=== PATIENT | male | born 1940 | race Caucasian/White ===

== ENCOUNTER 2018-10-27 10:54 | Day surgery (SDC) | payer OTHER ==
--- OUTSIDE RECORDS SUMMARY | 2018-10-27 10:58 | XMS REPORT | Summary of Care ---
:[address] [facility] Urology [facility] Address [address] [address] Care Team Providers Name Role Phone Quentin Gutierrez Primary Care Physician Encounter HQ Noahivet(FIN) [id number] Date(s): 02/10/18 - 02/11/18 [facility] [address] [phone] Vital Signs No data available for this section Problem List Condition Effective Dates Status Health Status Informant Ongoing use of possibly toxic Active medication(Confirmed) Bowel obstruction(Confirmed) Resolved Chronic pain syndrome(Confirmed)1 11/02/11 Active Colitis, ulcerative(Confirmed) Resolved Diarrhea(Confirmed) Active Glaucoma2 11/02/11 Active Hyperlipidemia(Confirmed)3 11/02/11 Active Hypertensive disorder4 11/02/11 Active Nephrolithiasis(Confirmed) Active Ankylosing spondylitis(Confirmed) Active Nocturia(Confirmed) Active Obesity(Confirmed) Active Osteomyelitis(Confirmed)5 Resolved Preoperative procedures6, 7 11/07/12 Resolved Elevated PSA(Confirmed) Active 1Data migrated from [employer] on 08/28/14.2Data migrated from [employer] on 08/28/14.3Data migrated from [employer] on 08/28/14.4Data migrated from [employer] on 08/28/14. Lt 4th [id number] migrated from [employer] on .7Data migrated from [employer] on 10/15/14. Allergies, Adverse Reactions, Alerts Substance Reaction Severity Status sulfa drugs1 Critical Active aspirin2 Critical Active 1Data migrated from [employer] on 10/28/14. Originally documented as SULFA.2Data migrated from [employer] on 07/30/14. Originally documented as ASA. Medications No data available for this section Results No data available for this section Immunizations Given and Recorded Vaccine Date Status Refusal Reason influenza virus vaccine, inactivated 12/30/17 Recorded influenza virus vaccine, inactivated 03/01/17 Recorded zoster vaccine, inactivated1 06/22/17 Recorded Hx influenza vaccine-unspecified2 03/11/12 Given 1Result Comment: [09/30/2017] First out of two [id number] Comment: fluzone. Migrated from [facility] ; Data migrated from [employer] on 05/03/2015. Procedures Procedure Date Related Diagnosis Body Site Status Lithotripsy using laser 01/08/18 Completed Prostate biopsy sample 12/16/17 Completed Partial amputation of lesser toe 11/03/12 Completed Colectomy Completed Hernia repair Completed Social History Social History Type Response Alcohol Never Smoking Status Never smoker; Type: Pt dips; Exposure to Tobacco Smoke None; Cigarette Smoking Last 365 Days No; Reg Smoking Cessation Counseling No1 entered on: 08/12/18 1Pt dips - 1 can will last 5-6 days - starting dipping about age 47 yrs. Assessment and Plan No data available for this section
--- OUTSIDE RECORDS SUMMARY | 2018-10-27 10:58 | XMS REPORT | Summary of Care ---
:1940 Author Organization [facility] Internal Medicine [place] Address [address] [place] [address]- Encounter HQ Eda_diaz(FIN) [phone] Date(s): 02/25/17 - 02/25/17 [facility] Internal Medicine [place] [id number] [place] [address] [phone] Discharge Disposition: Home or Self Care Attending Physician: Kraig Smith MD Vital Signs Most recent to oldest [Reference Range]: 1 Height 180.34 cm (02/25/17 2:08 PM) Temperature Oral [96.4-99.1 DegF] 97.6 DegF (02/25/17 2:08 PM) Blood Pressure [90-140/60-90 mmHg] 134/68 mmHg (02/25/17 2:08 PM) Peripheral Pulse Rate [60-100 bpm] 80 bpm (02/25/17 2:08 PM) Problem List Condition Effective Dates Status Health Status Informant Ongoing use of possibly toxic Active medication(Confirmed) Bowel obstruction(Confirmed) Resolved Chronic pain syndrome(Confirmed)1 11/02/11 Active Colitis, ulcerative(Confirmed) Resolved Glaucoma2 11/02/11 Active Hyperlipidemia(Confirmed)3 11/02/11 Active Hypertensive disorder4 11/02/11 Active Ankylosing spondylitis(Confirmed) Active Nocturia(Confirmed) Active Obesity(Confirmed) Active Osteomyelitis(Confirmed)5 Resolved Preoperative procedures6, 7 11/07/12 Resolved 1Data migrated from [employer] on 08/28/14.2Data migrated from [employer] on 08/28/14.3Data migrated from [employer] on 08/28/14.4Data migrated from [employer] on 08/28/14. Lt 4th [id number] migrated from [employer] on .7Data migrated from [employer] on 10/15/14. Allergies, Adverse Reactions, Alerts Substance Reaction Severity Status sulfa drugs1 Critical Active aspirin2 Critical Active 1Data migrated from [employer] on 10/28/14. Originally documented as SULFA.2Data migrated from [employer] on 07/30/14. Originally documented as ASA. Medications Claritin 10 mg oral tablet 10 mg=1 tab, PO, Daily Start Date: 02/25/17 Status: OrderedCurcumin Curcumin, 1 tab, PO, Daily, Refill(s) 0 Start Date: 02/25/17 Status: OrderedGlucosamine & Chondroitin with MSM 2 tab, PO, Daily, 0 Refill(s) Start Date: 02/25/17 Status: Orderedtramadol 50 mg oral tablet 50 mg=1 tab, PO, Q4H, # 150 tab, 3 Refill(s) Start Date: 02/25/17 Status: Ordered Results No data available for this section Immunizations Given and Recorded Vaccine Date Status Refusal Reason Hx influenza vaccine-unspecified1 03/11/12 Given 1Result Comment: fluzone. Migrated from [facility] ; Data migrated from [employer] on 05/03/2015. Procedures Procedure Date Related Diagnosis Body Site Partial amputation of lesser toe 11/03/12 Colectomy Hernia repair Social History Social History Type Response Alcohol Never Smoking Status Never smoker; Type: Pt dips; Exposure to Tobacco Smoke None; Cigarette Smoking Last 365 Days No; Reg Smoking Cessation Counseling No1 1Pt dips - 1 can will last 5-6 days - starting dipping about age 47 yrs. Assessment and Plan No data available for this section
--- OUTSIDE RECORDS SUMMARY | 2018-10-27 10:58 | XMS REPORT | Summary of Care ---
:1940 Author Organization [facility] Radiology [place] Address [address] [place] [address]- Care Team Providers Name Role Phone Quentin Gutierrez Primary Care Physician Encounter HQ Chandrikaestherfrancisco_diaz(FIN) [id number] Date(s): 02/11/18 - 02/11/18 [facility] Radiology [address] [place] [phone] Attending Physician: VISIT, NURSE ST XRAY Vital Signs No data available for this [...] from [employer] on 08/28/14. Lt 4th [id number] migrated from [employer] on .7Data migrated from [employer] on 10/15/14. Allergies, Adverse Reactions, Alerts Substance Reaction Severity Status sulfa drugs1 Critical Active aspirin2 Critical Active 1Data migrated from [employer] on 10/28/14. Originally documented as SULFA.2Data migrated from [employer] on 07/30/14. Originally documented as ASA. Medications No data available for this section Results No data available for this section Immunizations Given and Recorded Vaccine Date Status Refusal Reason influenza virus vaccine, inactivated 12/30/17 Recorded influenza virus vaccine, inactivated 03/01/17 Recorded zoster vaccine, inactivated1 06/22/17 Recorded Hx influenza vaccine-unspecified2 03/11/12 Given 1Result Comment: [09/30/2017] First out of two [id number] Comment: fluzone. Migrated from [facility] ; Data migrated from [employer] on 05/03/2015. Procedures Procedure Date Related Diagnosis [...]
--- OUTSIDE RECORDS SUMMARY | 2018-10-27 10:58 | XMS REPORT | Summary of Care ---
:1940 Author Organization [facility] Urology [place] Address [address] [place] [address]- Encounter HQ Evgeny(FIN) [phone] Date(s): 12/10/17 - 12/10/17 [facility] [address] [place] [address]- Discharge Disposition: Home or Self Care Attending Physician: Kraig Smith MD Vital Signs Most recent to oldest [Reference Range]: 1 Height 172.72 cm (12/10/17 4:30 PM) Weight 114 kg (12/10/17 4:30 PM) Body Mass Index 38.21 m2 (12/10/17 4:30 PM) Problem List Condition Effective Dates Status [...] from [employer] on 08/28/14. Lt 4th [id number] migrated from [employer] on .7Data migrated from [employer] on 10/15/14. Allergies, Adverse Reactions, Alerts Substance Reaction Severity Status sulfa drugs1 Critical Active aspirin2 Critical Active 1Data migrated from [employer] on 10/28/14. Originally documented as SULFA.2Data migrated from [employer] on 07/30/14. Originally documented as ASA. Medications triamcinolone topical 0.025% cream 1 appl, TOP, TID, PRN For rash, X 14 day, # 15 gm, 0 Refill(s), Pharmacy: [facility] Start Date: 12/16/17 Stop Date: 12/30/17 Status: Completed Results No data available for this section Immunizations Given and Recorded Vaccine Date Status Refusal Reason influenza virus vaccine, inactivated 12/30/17 Recorded influenza virus vaccine, inactivated 03/01/17 Recorded zoster vaccine, inactivated1 06/22/17 Recorded Hx influenza vaccine-unspecified2 03/11/12 Given 1Result Comment: [09/30/2017] First out of two [id number] Comment: fluzone. Migrated from [facility] ; Data migrated from [employer] on 05/03/2015. Procedures Procedure Date Related Diagnosis [...] Reg Smoking Cessation Counseling No1 entered on: 03/04/18 1Pt dips - 1 can will last 5-6 days - starting dipping about age 47 yrs. Assessment and Plan No data available for this section
--- OUTSIDE RECORDS SUMMARY | 2018-10-27 10:58 | XMS REPORT | Summary of Care ---
:1940 Author Organization [facility] Radiology [place] Address [address] [place] [address]- Care Team Providers Name Role Phone Quentin Gutierrez Primary Care Physician Encounter HQ Noahivet(CHRISTOS) [phone] Date(s): 02/11/18 - 02/11/18 [facility] Radiology [address] [place] [phone] Discharge Disposition: Home or Self Care Attending Physician: VISIT, NURSE [facility] XRAY Vital Signs No data available for [...] from [employer] on 08/28/14. Lt 4th [id number] migrated from [employer] on .7Data migrated from [employer] on 10/15/14. Allergies, Adverse Reactions, Alerts Substance Reaction Severity Status sulfa drugs1 Critical Active aspirin2 Critical Active 1Data migrated from [employer] on 10/28/14. Originally documented as SULFA.2Data migrated from [employer] on 07/30/14. Originally documented as ASA. Medications No data available for this section Results No data available for this section Immunizations Given and Recorded Vaccine Date Status Refusal Reason influenza virus vaccine, inactivated 12/30/17 Recorded influenza virus vaccine, inactivated 03/01/17 Recorded zoster vaccine, inactivated1 06/22/17 Recorded Hx influenza vaccine-unspecified2 03/11/12 Given 1Result Comment: [09/30/2017] First out of two [id number] Comment: fluzone. Migrated from [facility] ; Data migrated from [employer] on 05/03/2015. Procedures Procedure Date Related Diagnosis [...]
--- OUTSIDE RECORDS SUMMARY | 2018-10-27 10:58 | XMS REPORT | Continuity of Care Document ---
:1940 Author Organization [employer] Care Team Providers Name Role Phone [employer] Unavailable Unavailable Problems Problem Status Onset Classification Date Comments Source Date Reported Elevated prostate 03/01/20 07/05/2018 [facility]ID specific antigen 18 [place] [PSA] [place] R97.20 - ELEVATED Active 11/15/19 [facility] PROSTATE SPECIFIC 18 [place] ANT [place] Preoperative Resolved 11/08/19 Problem 09/22/2018 Data migrated from [facility] on 10/16/14. procedures6, 7 13 Data migrated from [facility] on 10/15/14. Medical Group, OPID [place], [place] Chronic pain Active 11/02/19 Problem 09/22/2018 Data syndrome1 12 migrated Medical from [facility] OPID on 08/28/14. [place], [place] Glaucoma2 Active 11/02/19 Problem 09/22/2018 Data 12 migrated Medical from [facility] OPID on 08/28/14. [place], [place] Hyperlipidemia3 Active 11/02/19 Problem 09/22/2018 Data 12 migrated Medical from [facility] OPID on 08/28/14. [place], [place] Hypertensive Active 11/02/19 Problem 09/22/2018 Data disorder4 12 migrated Medical from [facility] OPID on 08/28/14. 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 Medical Group, OPID [place], [place] Nocturia Active Problem 09/22/2018 Medical Group, OPID [place], [place] Obesity Active Problem 09/22/2018 Medical Group, OPID [place], [place] Osteomyelitis5 Resolved Problem 09/22/201810/2012 Lt 4th toe Medical Group, OPID [place], [place] Elevated PSA Active Problem 09/22/2018 Medical Group, OPID [place], Eugene Essential 07/05/2018 [place] hypertension [place] Ulcerative 07/05/2018 [place] colitis, [place] unspecified, without complications 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 Chronic pain 07/05/2018 [place] syndrome [place] Cyst of kidney, 07/05/2018 OPID acquired Eugene,[facility] Eugene Calculus of kidney 07/05/2018 [place] Hyperlipidemia, 07/05/2018 [place] unspecified [place] Nocturia 07/05/2018 [place] Obesity, 07/05/2018 [place] unspecified [place] Acquired absence 07/05/2018 [place] of other specified [place] parts of digestive tract 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 [place] Calculus of ureter 06/17/2018 OPID [place] Medications Medication Details Route Status Patient Ordering Order Source Instructions Provider Date tramadol 50 mg=1 tab, Active 07/08/ hydrochloride 50 MG PO, Q6H, X 7 2019 Medical Oral Tablet day, # 28 Group tab, 0 Refill(s) Atropine Sulfate See Active 0.025 MG / Instructions, 2019 Medical Diphenoxylate 1 or 2 tabs Group Hydrochloride 2.5 MG by mouth up Oral Tablet [Lomotil] to 3 times daily as needed for diarrhea, # 60 tab, 2 Refill(s) Hydrochlorothiazide 1 tab, PO, Active 06/16/ 25 MG / Losartan Daily, # 90 2019 Medical Potassium 100 MG Oral tab, 3 Group Tablet Refill(s), Pharmacy: [facility] tramadol 50 mg=1 tab, No Longer 03/04/ hydrochloride 50 MG PO, Q4H, # Active 2018 Medical Oral Tablet 150 tab, 3 Group Refill(s) tramadol 50 mg=1 tab, No Longer 03/04/ hydrochloride 50 MG PO, Q4H, # Active 2018 Medical Oral Tablet 150 tab, 3 Group Refill(s) Triamcinolone 1 appl, TOP, No Longer Acetonide 0.25 MG/ML TID, PRN For Active 2018 Medical Topical Cream rash, X 14 Group day, # 15 gm, 0 Refill(s), Pharmacy: [facility] Fentanyl Route: IV, Inactive [place] Drug form: 2018 [place] INJ, ONCE, Dosing Weight 113.636, kg, Start date: 12/16/17 11:00:00 CDT, Stop date: 12/16/17 11:00:00 CDTNotes: (Same as: Sublimaze) Preservative free. Versed 3 mg, 3 mL, Inactive [place] Route: IV, 2017 [place] Drug form: INJ, ONCE, Dosing Weight 113.636, kg, Start date: 12/16/17 11:00:00 CDT, Stop date: 12/16/17 11:00:00 CDTNotes: (Same as: Versed) MEDICATION WASTE Product Size: 2 mg Product Wasted: _1__ mg tramadol 50 mg=1 tab, No Longer hydrochloride 50 MG PO, Q4H, # Active 2018 Medical Oral Tablet 150 tab, 3 Group Refill(s) tramadol 50 mg=1 tab, Active hydrochloride 50 MG PO, Q4H, # 2018 Medical Oral Tablet 150 tab, 3 Group Refill(s) Hydrochlorothiazide 1 tab, PO, Active 25 MG / Losartan Daily, # 90 2018 Medical Potassium 100 MG Oral tab, 3 Group Tablet Refill(s), Pharmacy: [facility] tramadol 50 mg=1 tab, Active hydrochloride 50 MG PO, Q4H, # 2017 Medical Oral Tablet 150 tab, 3 Group Refill(s) Curcumin Curcumin, 1 Active tab, PO, 2017 Medical Daily, Group Refill(s) 0 Loratadine 10 MG Oral 10 mg=1 tab, Active Tablet [Claritin] PO, Daily 2017 Medical Group Glucosamine & 2 tab, PO, Active Chondroitin with MSM Daily, 0 2017 Medical Refill(s) Group Allergies, Adverse Reactions, Alerts Substance Category Reaction Severity Reaction Status Date Comments Source type Reported sulfa Assertion Critical Drug Active Data drugs<sup>1 allergy 2 migrated Medical </sup> from [facility] on 10/28/14. Originally documented as SULFA. aspirin<sup Assertion Critical Drug Active Data MH >2</sup> allergy 2 migrated Medical from [facility] on 07/30/14. Originally documented as ASA. Immunizations Immunization Date Site Status Last Comments Source Given Updated influenza virus completed Titel Medical vaccine, 8 Group, inactivated OPID Eugene, Eugene zoster vaccine, completed Titel Result Medical inactivated<sup> 8 Comment: Group, 1</sup> [09/30/2017] OPID [place] First out of [place], two shots Eugene influenza virus completed Titel Medical vaccine, 7 Group, inactivated OPID [place], Eugene Hx influenza Left completed GE Result Medical vaccine-unspecif 2 Deltoid Comment: Group, ied<sup>2</sup> fluzone. OPID [place] Migrated from [place],MH OBS ; Data Eugene migrated from [facility] on 05/03/2015. Hx influenza Left completed GE Result Medical vaccine-unspecif 2 Deltoid Comment: Group ied<sup>1</sup> fluzone. Migrated from OBS ; Data migrated from [facility] on 05/03/2015. Results Order Name Results Value Reference Date Interpretation Comments Source Range HEMATOLOGY Platelet 310 133 - 450 12/16/ 2017 [place] CHEM PANEL eGFR 55 12/16/ Result 2017 Comment: The [facility] eGFR is [place] calculated using the CKD-EPI formula. In most young, healthy individuals the eGFR will be >90 mL/min/1.73m2. The eGFR declines with age. An eGFR of 60-89 may be normal in some populations, particularly the elderly, for whom the CKD-EPI formula has not been extensively validated. Use of the eGFR is not recommended in the following populations:<b r/>
Indivi duals with unstable creatinine concentrations , including patients and those with serious co-morbid conditions.

Patient s with extremes in muscle mass or diet.

The data above are obtained from the National Kidney Disease Education Program (NKDEP) which additionally recommends that when the eGFR is used in patients with extremes of body mass index for purposes of drug dosing, the eGFR should be multiplied by the estimated BMI. CHEM PANEL Creatinine 1.26 0.50 - 1.40 Lvl 2018 [place] HEMATOLOGY INR 0.90 0.85 - 1.17 2017 [place] HEMATOLOGY PT 12.1 12.0 - 14.7 2017 [place] HEMATOLOGY PTT 26.9 22.9 - 35.8 2017 [place] Pathology Reports No Data Provided for This Section Diagnostic Reports Report Value Date Source Abdomen AP DX Abdomen AP DX 08/12/2018 [facility] CLINICAL INDICATION: - kidney stone COMPARISON: 02/11/2018 FINDINGS: Support Lines/Tubes: none Bowel gas pattern is unremarkable. No tract calculi are evident. Extensive degenerative changes are noted in the lumbar spine. IMPRESSION: No definite tract calculi nor other significant abnormality is noted. SL: [id number] Abdomen AP DX EXAM: AP radiographs of the abdomen and pelvis; 2 images obtained 02/11/2018 [facility] INDICATION: Renal stone COMPARISON: CT abdomen pelvis performed on 11/28/2017 FINDINGS: Right UPJ calculus noted on 11/28/2017 CT abdomen pelvis is not identified with the radiography. No other renal or ureteral calculus identified. No soft tissue mass or abnormal calcification i dentified. Bowel gas pattern is nonobstructive. No acute osseous abnormalities evident. Degenerative changes involve the lower lumbar spine. IMPRESSION: Right ureteropelvic junction calculus seen on recent CT abdomen pelvis study is not identified with radiography. SL: [id number] Pelvis biopsy needle PROCEDURE: 12/16/[address]-guided prostate (pelvic mass) biopsy Moderate sedation CLINICAL INFORMATION: Abnormal prostate magnetic resonance imaging suggestive of state malignancy. Status post history of large bowel resection for ulcerative colitis. CT-guided biopsy of the prostate is requested for tissue diagnosis. CONSENT: The procedure, risks, benefits and alternatives were discussed with the patient and written informed consent was obtained. Possible risks and complications including pneumothorax with possible need for chest tube placement or surgical intervention, pulmonary hemorrhage , infection and nondiagnostic sampling were discussed. SEDATION: Moderate sedation was carried out with Fentanyl and Versed and monitored by the nursing staff and myself for 30 minutes OPERATORS: Dr. Swann DLP: 1998.91 mgy-cm PROCEDURE: AEC, mA/kV adjustment by patient size, and/or iterative reconstruction technique were used, per departmental dose-optimization program. Sterile barrier technique was followed including: Cap and mask, sterile gown , sterile gloves, and large sterile sheet. Hand hygiene, and 2% chlorhexidine for cutaneous antisepsis (or acceptable alternative antiseptics, per current guideline). The patient was placed in the prone position and the right buttock was prepped and draped in the usual sterile fashion prepped and draped in usual sterile fashion. After localizing CT, 1% lidocaine was used to anesthetize the skin. A 17- gauge guide needle was advanced into the right medial prostate gland under CT guidance and 4 core samples were obtained. There w ere approximately 8 passes performed. Samples were sent for cytopathology examination. The guide needle was removed and a post biopsy CT was obtained. No hematoma was identified. The patient tolerated the procedure well and there were no immediate complications. FINDINGS: Abnormal prostate gland. IMPRESSION: CT-guided biopsy of prostate gland. Abdomen/Pelvis w/wo CT OF ABDOMEN AND PELVIS WITH AND WITHOUT IV CONTRAST, 11/28/2017 OPID [place] IV contrast CT HISTORY: Left lower abdominal mass detected on magnetic resonance imaging of pelvis with and without IV contrast dated 11/26/2017. Elevated serum prostate-specific antigen. 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 Delayed images and sagittal and coronal reconstructions were performed. DLP: 2862 mGy- cm. AEC, mA/kV adjustment by patient size, and/or iterative reconstruction technique were used, per departmental dose-optimization program. FINDINGS: The lung bases are clear. The pre and postcontrast images through the liver demonstrate several tiny hypodense lesions, most likely representing benign hepatic cysts or benign biliary hamartomas. No evidence of solid liver mass or bile duct dilatation. Normal gallbladder, pancreas, spleen, adrenal glands , and inferior vena cava. Abdominal aortic calcifications without aneurysm. 8 x 6 mm irregular shaped calculus at the right UVJ produces mild dilatation of the right renal pelvis, but no significant obstruction. Both kidneys include multiple benign renal cysts. The largest fernanda gn cyst is located in the left kidney measures 19 cm. The left lower abdominal mass noted on magnetic resonance imaging of the pelvis represents 8.5 cm benign renal cyst on CT. Postoperative total colectomy with nondilated bowel loops. Right lower quadrant ileostomy noted. Several collapsed small bowel loops in the lower pelvis have been adhesions without evidence of obstructi on. Presacral soft tissue thickening related to prior total colectomy with no prior CT of the pelvis available for comparison. No significant pelvic lymphadenopathy detected. No obvious mass within the prostate detected. Degenerative changes noted in the lumbar spine, particularly at L5-S1. Bilateral L5 pars defects with grade 1 spondylolisthesis of L5 on S1. The sacroiliac joints are almost completely fused related to ankylosing spondylitis or other seronegative spondyloarthropathy. 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 Mild degenerative changes involving bilateral hips, right more than left. The anterior abdominal wall is diffusely deficient with large ventral hernia. IMPRESSION: Multiple bilateral benign renal cysts. The left lower abdominal mass seen on magnetic resonance imaging of pelvis with and without IV contrast represents 8.5 cm benign renal cyst. 8.5 mm right UVJ calculus produces mild right pelvocaliectasis, but no significant obstruction. Multiple other findings as described above. Pelvis w/wo contrast Exam: MRI of the prostate gland with and without contrast (DynaCad/UroNav) 11/26/2017 OPID [place] MRI Reason for Exam: - MRI Prostate Detection. Elevated prostate-specific antigen. Comparison Exam: None Technique: Multiplanar and multisequence imaging was performed of the prostate gland and surrounding tissues. T1 and T2-weighted images were acquired with and without injection of 20 cc. Dotarem IV. DynaCad quantitative analysis was utilized. Discussion: Prostate gland is enlarged measuring 51.8 mL (5.2 x 5.0 x 4.6 cm). The peripheral zone appears heterogeneous, predominantly within the posterior aspect. However, there is no suspicious signal on the DWI or ADC images. On series 301, 15 there is a 1.8 cm hypointense region seen within the mid body transition zone that is suspicious for neoplastic involvement (volume rendering on Dynacad). The boundaries of the prostate gland appear intact. Seminal vesicles and base of the bladder are unremarkable. Neurovascular bundle is unremarkable. No appreciable lymphadenopathy. Patient is status post total colectomy per history. A well-circumscribed oval -shaped structure is partially visualized within the left upper pelvis measuring 8.1 x 6.6 cm (801, 13). It abuts the anterio r aspect of the left psoas muscle. No previous exams available for comparison. Correlate with clinical history and exam. Impression: 1. 1.8 cm hypointense region seen within the mid body transition zone that is suspicious for neoplastic involvement (volume rendering on Dynacad). 2. A well-circumscribed oval-shaped structure is partially visualized within the left upper pelvis measuring 8.1 x 6.6 cm. It abuts the anterior aspect of the left psoas muscle. No previous exams availa ble for comparison. Correlate with clinical history and exam. Pi-Rads 4 PIRADSTM v2 assessment uses a 5 point scale based on the likelihood ( probability) that a combination of mpMRI findings on T2W, DWI, and DCE correlates with the presence of a clinically significant cancer for each lesion in the prostate gland. PIRADSTM v2 ASSESSMENT CATEGORIES: PIRADS 1 Very low (clinically significant cancer is highly unlikely to be present). PIRADS 2 Low (clinically significant cancer is unlikely to be present). PIRADS 3 Intermediate (the presence of clinically significant cancer is equivocal). PIRADS 4 High (clinically significant cancer is likely to be present). PIRADS 5 Very high (clinically significant cancer is highly likely to be present). NOTE: Assignment of a PIRADSTM v2 Assessment Category should be based on mpMRI findings only and should not incorporate other factors such as serum prostate specific antigen (PSA), digital rectal exam, clinical history, or choice of treatment. Although biopsy should be considered for PIRADS 4 or 5, but not for PIRADS 1 or 2, PIRADSTM v2 does not include recommendations for management, as these must ta ke into account other factors besides the MRI findings, including laboratory/ clinical history and local preferences, expertise and standards of care. Thus, for findings with PIRADS Assessment Category 2 or 3, biopsy may or may not be appropriate, depending on factors other than mpMRI alone. Consultation Notes No Data Provided for This Section Discharge Summaries No Data Provided for This Section History and Physicals No Data Provided for This Section Vital Signs Vital Sign Value Date Comments Source Height 172.72 cm 08/12/2018 Medical Group Heart Rate 80 08/12/2018 Medical Group Temperature Oral (F) 98.2 F 08/12/2018 Medical Group Weight 112.273 08/12/2018 Medical Group BMI Calculated 37.63 08/12/2018 Medical Group Systolic (mm Hg) 148 08/12/2018 Medical Group Diastolic (mm Hg) 78 08/12/2018 Medical Group Height 172.72 cm 07/08/2018 Medical Group Weight 113.295 07/08/2018 Medical Group BMI Calculated 37.98 07/08/2018 Medical Group Systolic (mm Hg) 126 07/08/2018 Medical Group Diastolic (mm Hg) 67 07/08/2018 Medical Group Temperature Oral (F) 97.9 F 07/08/2018 Medical Group Heart Rate 86 07/08/2018 Medical Group BMI Calculated 38.55 03/04/2018 Medical Group Height 172.72 cm 03/04/2018 Medical Group Weight 115 03/04/2018 Medical Group Heart Rate 75 03/04/2018 Medical Group Temperature Oral (F) 98.1 F 03/04/2018 Medical Group Systolic (mm Hg) 159 03/04/2018 Medical Group Diastolic (mm Hg) 81 03/04/2018 Medical Group BMI Calculated 36.38 02/11/2018 Medical Group Weight 115 02/11/2018 Medical Group Height 177.8 cm 02/11/2018 Medical Group Heart Rate 80 02/11/2018 Medical Group Systolic (mm Hg) 152 02/11/2018 Medical Group Diastolic (mm Hg) 80 02/11/2018 Medical Group Systolic (mm Hg) 141 12/16/2017 [place] Diastolic (mm Hg) 62 12/16/2017 [place] Systolic (mm Hg) 114 12/16/2017 [place] Diastolic (mm Hg) 63 12/16/2017 [place] Systolic (mm Hg) 162 12/16/2017 [place] Diastolic (mm Hg) 80 12/16/2017 [place] BMI Calculated 35.95 12/16/2017 [place] Height 177.8 cm 12/16/2017 [place] Weight 113.636 12/16/2017 [place] Weight 114 12/10/2017 Medical Group BMI Calculated 38.21 12/10/2017 Medical Group Height 172.72 cm 12/10/2017 Medical Group Heart Rate 82 11/12/2017 Medical Group Systolic (mm Hg) 156 11/12/2017 Medical Group Diastolic (mm Hg) 91 11/12/2017 Medical Group BMI Calculated 38.13 11/12/2017 Medical Group Weight 113.75 11/12/2017 Medical Group Height 172.72 cm 11/12/2017 Medical Group BMI Calculated 38.4 10/28/2017 Medical Group Weight 114.545 10/28/2017 Medical Group Height 172.72 cm 10/28/2017 Medical Group Temperature Oral (F) 98.4 F 10/28/2017 Medical Group Heart Rate 89 10/28/2017 Medical Group Systolic (mm Hg) 134 10/28/2017 Medical Group Diastolic (mm Hg) 74 10/28/2017 Medical Group Weight 115.455 06/24/2017 Medical Group BMI Calculated 38.14 06/24/2017 Medical Group Height 173.99 cm 06/24/2017 Medical Group Systolic (mm Hg) 113 06/24/2017 Medical Group Diastolic (mm Hg) 70 06/24/2017 Medical Group Temperature Oral (F) 98.1 F 06/24/2017 Medical Group Heart Rate 87 06/24/2017 Medical Group Temperature Oral (F) 97.6 F 02/25/2017 Medical Group Systolic (mm Hg) 134 02/25/2017 Medical Group Diastolic (mm Hg) 68 02/25/2017 Medical Group Heart Rate 80 02/25/2017 Medical Group Height 180.34 cm 02/25/2017 Medical Group Encounters Location Location Encounter Encounter Reason Attending ADM DC Status Source Details Type Number For Provider Date Date Visit Outpatient [id number] 11/30 [facility] 0 [place] Outpatient [id number] 04/05 [facility] [place] Outpatient [id number] 04/07 [facility] [place] Outpatient [id number] 10/30 [facility] 3 [place] Outpatient [id number] 02/19 [facility] 4 [place] Outpatient [id number] QUYEN 05/30 [facility] Outpatient [id number] MARILYN [facility]/18 [facility] [place] Out[facility] [id number] MARILYN 10/22 [facility] [place] Outpatient [id number] RICHLIZBET SMITH 12/25 [facility] Outpatient [id number] 02/25 [facility] Outpatient [id number] Richlizbet Smith 02/25 02/26 Internal Medical Medicine Group [facility] Phone [id number] 06/05 06/07 Internal Message Medical Medicine [facility] Outpatient [id number] 06/24 Active [facility] 1 [facility] Outpatient [id number] 06/24 Internal 1 Medical Medicine [facility] Outpatient [id number] 10/28 [facility] [id number] 10/28 Internal 2 Medical Medicine [facility] Outpatient [id number] RICH SMITH 11/12 Active [facility] Outpatient [id number] Rich Smith 11/12 11/13 Urology [facility] [place] [facility] Outpt Diag [id number] [place] 11/26 11/27 [facility] Outpatient Services [facility] [place] [facility] Outpt Diag [id number] Richlizbet Smith 11/28 11/29 [facility] Outpatient Services [facility] [place] Outpatient [id number] RICH SMITH 12/10 Active [facility] Outpatient [id number] Rich Smith 12/10 12/11 Urology Medical [facility] Outpatient [id number] Rich [place] 12/16 12/17 [place] Outpatient [id number] RICH SMITH 12/18 Active [facility] Ambulatory [id number] Rich Sarah 12/18 01/17 Urology Pre-Reg Medical [place] [facility] Outside [id number] 12/27 12/29 Urology Medical Medical [place] Records Group [facility] Outside [id number] 01/01 01/03 Urology Medical Medical [place] [facility] Outside [id number] 01/24 01/26 Urology Medical Medical [place] Records [facility] Phone [id number] 02/10 02/12 Urology Message Medical [place] Group [facility] Outpatient [id number] XRAY VISIT 02/11 Active [facility] Bert Outpatient [id number] XRAY VISIT 02/11 Active [facility] [place] Outpatient [id number] RICH SARAH 02/11 Active [facility] Bert [facility] Ambulatory [id number] NURSE VISIT 02/11 02/11 Radiology Pre-Reg [facility] [place] [facility] Outpatient [id number] NURSE VISIT 02/11 02/12 Radiology Medical [place] [facility] Outpatient [id number] Rich Sarah 02/11 02/12 Urology [facility] [place] Outpatient [id number] MARILYN 03/04 Active [facility] [id number] Marilyn 03/04 03/05 Internal 3 [facility] [place] Outpatient [id number] Marilyn 07/08 [facility] 1 [place] [facility] Outpatient [id number] Marilyn 07/08 07/09 Internal 1 [facility] Medical Medicine Group [facility] Phone [id number] 07/30 08/01 Internal Message Medical Medicine Group [place] Outpatient [id number] Rich [place] 08/12 Active [facility] [place] Outpatient [id number] NURSE VISIT 08/12 Active [facility] [place] Outpatient [id number] NURSE VISIT 08/12 Active [facility] [place] Outpatient [id number] NURSE VISIT 08/12 Active [facility] [place] Outpatient [id number] NURSE VISIT 08/12 Active [facility] [place] [facility] Outpatient [id number] Rich Sarah 08/12 08/13 [facility] Ambulatory [id number] NURSE VISIT 08/12 08/12 Radiology Pre-Reg [facility] Ambulatory [id number] NURSE VISIT 08/12 08/12 Radiology Pre-Reg [facility] Ambulatory [id number] Rich Smith 08/12 08/12 Radiology Pre-Reg [facility] Outpatient [id number] NURSE VISIT 08/12 08/13 [facility] Outpatient [id number] Marilyn 11/11 [facility] 2 [place] Outpatient [id number] Rich Smith 08/17 [facility] [place] Procedures Procedure Code Date [place]fomer [place] [address] 02/11/2018 Medical post-voiding Group residual urine and/or bladder capacity by ultrasound, non-imaging Lithotripsy using [id number] 01/08/2018 Medical laser Group Lithotripsy using [id number] 01/08/2018 [place] laser Lithotripsy using [id number] 01/08/2018 [facility] Prostate biopsy [id number] 12/16/2017 Medical sample Group Prostate biopsy [id number] 12/16/2017 [place] sample Prostate biopsy [id number] 12/16/2017 [facility] [place] [address] 11/12/2017 Medical post-voiding Group residual urine and/or bladder capacity by ultrasound, non-imaging Partial amputation [id number] 11/03/2012 Medical of lesser toe Group Partial amputation [id number] 11/03/2012 [place] of lesser toe Partial amputation [id number] 11/03/2012 [facility] of lesser toe Land Colectomy [id number] Medical Group Hernia repair [id number] Medical Group Colectomy [id number] [place] Hernia repair [id number] [place] Colectomy [id number] [facility] Hernia repair [id number] [facility] [place] Assessment and Plan No Data Provided for This Section Plan of Care No Data Provided for This Section Social History Social History Date Source Social History TypeResponse 11/27/2014 Medical Group Alcohol Never Smoking Status Never smoker; Type: Pt dips; Exposure to Tobacco Smoke None; Cigarette Smoking Last 365 Days No; Reg Smoking Cessation Counseling No1 entered on: 08/12/18 1Pt dips - 1 can will last 5-6 days - starting dipping about age 47 yrs. Social History TypeResponse 11/27/2014 [place] Alcohol Never Smoking Status Never smoker; Type: Pt dips; Exposure to Tobacco Smoke None; Cigarette Smoking Last 365 Days No; Reg Smoking Cessation Counseling No1 entered on: 03/04/18 1Pt dips - 1 can will last 5-6 days - starting dipping about age 47 yrs. Social History TypeResponse 11/27/2014 [facility] [place] Alcohol Never Smoking Status Never smoker; Type: Pt dips; Exposure to Tobacco Smoke None; Cigarette Smoking Last 365 Days No; Reg Smoking Cessation Counseling No1 entered on: 03/04/18 1Pt dips - 1 can will last 5-6 days - starting dipping about age 47 yrs. Family History No Data Provided for This Section Advance Directives No Data Provided for This Section Functional Status No Data Provided for This Section
--- OUTSIDE RECORDS SUMMARY | 2018-10-27 10:58 | XMS REPORT | Summary of Care ---
:1940 Author Organization [facility] Urology [place] Address [address] [place] [address]- Care Team Providers Name Role Phone Quentin Gutierrez Primary Care Physician Encounter HQ Noahivet(CHRISTOS) [id number] Date(s): 02/11/18 - 02/11/18 [facility] [address] [place] [address]- [phone] Discharge Disposition: Home or Self Care Attending Physician: Kraig Smith MD Vital Signs Most recent to oldest [Reference Range]: 1 Height 177.8 cm (02/11/18 12:20 PM) Blood Pressure [90-140/60-90 mmHg] 152/80 mmHg *HI* (02/11/18 12:20 PM) Peripheral Pulse Rate [60-100 bpm] 80 bpm (02/11/18 12:20 PM) Weight 115 kg (02/11/18 12:20 PM) Body Mass Index 36.38 m2 (02/11/18 12:20 PM) Problem List Condition Effective Dates Status [...] from [employer] on 08/28/14. Lt 4th [id number] migrated from [employer] on .7Data migrated from [employer] on 10/15/14. Allergies, Adverse Reactions, Alerts Substance Reaction Severity Status sulfa drugs1 Critical Active aspirin2 Critical Active 1Data migrated from [employer] on 10/28/14. Originally documented as SULFA.2Data migrated from [employer] on 07/30/14. Originally documented as ASA. Medications No Known Medications Results No data available for this section Immunizations Given and Recorded Vaccine Date Status Refusal Reason influenza virus vaccine, inactivated 12/30/17 Recorded influenza virus vaccine, inactivated 03/01/17 Recorded zoster vaccine, inactivated1 06/22/17 Recorded Hx influenza vaccine-unspecified2 03/11/12 Given 1Result Comment: [09/30/2017] First out of two [id number] Comment: fluzone. Migrated from OBS ; Data migrated from [employer] on 05/03/2015. Procedures Procedure Date Related Diagnosis Body Site Status Measurement of post-voiding residual 02/11/18 Completed urine and/or bladder capacity by ultrasound, non-imaging Lithotripsy using laser 01/08/18 Completed Prostate biopsy [...]
--- OUTSIDE RECORDS SUMMARY | 2018-10-27 10:59 | XMS REPORT | Summary of Care ---
:1940 Author Organization [facility] Urology [place] Address [address] [place] [address]- Encounter HQ Eda_diaz(FIN) [id number] Date(s): 12/10/17 - 12/10/17 [facility] [address] [place] [address] [phone] Discharge Disposition: Home or Self Care Attending [...] from [employer] on 08/28/14. Lt 4th [id number] migrated from [employer] on .7Data migrated from [employer] on 10/15/14. Allergies, Adverse Reactions, Alerts Substance Reaction Severity Status sulfa drugs1 Critical Active aspirin2 Critical Active 1Data migrated from [employer] on 10/28/14. Originally documented as SULFA.2Data migrated from [employer] on 07/30/14. Originally documented as ASA. Medications triamcinolone topical 0.025% cream 1 appl, TOP, TID, PRN For rash, X 14 day, # 15 gm, 0 Refill(s), Pharmacy: [facility] Start Date: 12/16/17 Stop Date: 12/30/17 Status: Completed Results No data available for this section Immunizations Given and Recorded Vaccine Date Status Refusal Reason influenza virus vaccine, inactivated 12/30/17 Recorded influenza virus vaccine, inactivated 03/01/17 Recorded zoster vaccine, inactivated1 06/22/17 Recorded Hx influenza vaccine-unspecified2 03/11/12 Given 1Result Comment: [09/30/2017] First out of two [id number] Comment: fluzone. Migrated from OBS ; Data migrated from [employer] on 05/03/2015. Procedures Procedure Date Related Diagnosis [...]
--- OUTSIDE RECORDS SUMMARY | 2018-10-27 10:59 | XMS REPORT | Summary of Care ---
:1940 Author Organization [facility] Urology [facility] Address [address] [address] Care Team Providers Name Role Phone Quentin Gutierrez Primary Care Physician Encounter HQ Luizlyndsay(FIN) [id number] Date(s): 01/24/18 - 01/25/18 [facility] [address] [address] [phone] Vital Signs No data available for this [...] from [employer] on 08/28/14. Lt 4th [id number] migrated from [employer] on .7Data migrated from [employer] on 10/15/14. Allergies, Adverse Reactions, Alerts Substance Reaction Severity Status sulfa drugs1 Critical Active aspirin2 Critical Active 1Data migrated from [employer] on 10/28/14. Originally documented as SULFA.2Data migrated from [employer] on 07/30/14. Originally documented as ASA. Medications No data available for this section Results No data available for this section Immunizations Given and Recorded Vaccine Date Status Refusal Reason influenza virus vaccine, inactivated 12/30/17 Recorded influenza virus vaccine, inactivated 03/01/17 Recorded zoster vaccine, inactivated1 06/22/17 Recorded Hx influenza vaccine-unspecified2 03/11/12 Given 1Result Comment: [09/30/2017] First out of two [id number] Comment: fluzone. Migrated from OBS ; Data migrated from [employer] on 05/03/2015. Procedures Procedure Date Related Diagnosis [...]
--- OUTSIDE RECORDS SUMMARY | 2018-10-27 10:59 | XMS REPORT | Summary of Care ---
:1940 Author Organization [facility] Internal Medicine [place] Address [address] [place] [address]- Care Team Providers Name Role Phone Quentin Gutierrez Primary Care Physician Encounter HQ Chandrikaestherivet(FIN) [id number] Date(s): 07/30/18 - 07/31/18 [facility] Internal Medicine [place] [address] [place] [address]- [phone] Vital Signs No data available for this [...] from [employer] on 08/28/14. Lt 4th [id number] migrated from [employer] on .7Data migrated [...] 1Result Comment: [09/30/2017] First out of two [id number] Comment: fluzone. Migrated from [facility] ; Data migrated from [employer] on 05/03/2015. Procedures Procedure Date Related Diagnosis [...] Reg Smoking Cessation Counseling No1 entered on: 07/08/18 1Pt dips - 1 can will last 5-6 days - starting dipping about age 47 yrs. Assessment and Plan No data available for this section
--- OUTSIDE RECORDS SUMMARY | 2018-10-27 10:59 | XMS REPORT | Summary of Care ---
:1940 Author Organization [facility] Internal Medicine [place] Address [address] [place] [address]- Encounter HQ Noahr_diaz(FIN) [id number] Date(s): 07/08/18 - 07/08/18 [facility] Internal Medicine [place] [address] [facility] [place] [address] [phone] Discharge Disposition: Home or Self Care Attending Physician: Quentin Gutierrez MD Vital Signs Most recent to oldest [Reference Range]: 1 Height 172.72 cm (07/08/18 10:07 AM) Temperature Oral [96.4-99.1 DegF] 97.9 DegF (07/08/18 10:07 AM) Blood Pressure [90-140/60-90 mmHg] 126/67 mmHg (07/08/18 10:07 AM) Peripheral Pulse Rate [60-100 bpm] 86 bpm (07/08/18 10:07 AM) Weight 113.295 kg (07/08/18 10:07 AM) Body Mass Index 37.98 m2 (07/08/18 10:07 AM) Problem List Condition Effective Dates Status Health [...] from [employer] on 08/28/14. Lt 4th [id number] migrated from [employer] on .7Data migrated from [employer] on 10/15/14. Allergies, Adverse Reactions, Alerts Substance Reaction Severity Status sulfa drugs1 Critical Active aspirin2 Critical Active 1Data migrated from [employer] on 10/28/14. Originally documented as SULFA.2Data migrated from [employer] on 07/30/14. Originally documented as ASA. Medications Lomotil oral tablet See Instructions, 1 or 2 tabs by mouth up to 3 times daily as needed for diarrhea, # 60 tab, 2 Refill(s) Start Date: 07/08/18 Status: Orderedtramadol 50 mg oral tablet 50 mg=1 tab, PO, Q6H, X 7 day, # 28 tab, 0 Refill(s) Start Date: 07/08/18 Stop Date: 07/15/18 Status: Ordered Results No data available for this section Immunizations Given and Recorded Vaccine Date Status Refusal Reason influenza virus vaccine, inactivated 12/30/17 Recorded influenza virus vaccine, inactivated 03/01/17 Recorded zoster vaccine, inactivated1 06/22/17 Recorded Hx influenza vaccine-unspecified2 03/11/12 Given 1Result Comment: [09/30/2017] First out of two [id number] Comment: fluzone. Migrated from OBS ; Data [...]
--- OUTSIDE RECORDS SUMMARY | 2018-10-27 10:59 | XMS REPORT | Summary of Care ---
:1940 Author Organization [facility] Urology [place] Address [address] [place] [address]- Encounter HQ Eda_diaz(FIN) [id number] Date(s): 11/12/17 - 11/12/17 [facility] [address] [place] [phone] Discharge Disposition: Home or Self Care Attending Physician: Kraig Smith MD Vital Signs Most recent to oldest [Reference Range]: 1 Height 172.72 cm (11/12/17 8:41 AM) Blood Pressure [90-140/60-90 mmHg] 156/91 mmHg *HI* (11/12/17 8:41 AM) Peripheral Pulse Rate [60-100 bpm] 82 bpm (11/12/17 8:41 AM) Weight 113.75 kg (11/12/17 8:41 AM) Body Mass Index 38.13 m2 (11/12/17 8:41 AM) Problem List Condition Effective Dates Status [...] from [employer] on 08/28/14. Lt 4th [id number] migrated from [employer] on .7Data migrated [...] 1Result Comment: [09/30/2017] First out of two [id number] Comment: fluzone. Migrated from OBS ; Data migrated from [employer] on 05/03/2015. Procedures Procedure Date Related Diagnosis Body Site Status Lithotripsy using laser 01/08/18 Completed Prostate biopsy sample 12/16/17 Completed Measurement of post-voiding residual 11/12/17 Completed urine and/or bladder capacity by ultrasound, non-imaging Partial amputation of lesser toe 11/03/12 Completed [...]
--- OUTSIDE RECORDS SUMMARY | 2018-10-27 10:59 | XMS REPORT | Summary of Care ---
:1940 Author Organization [facility] Address [address] [place], [place] [address]- Encounter HQ Evgeny(FIN) [id number] Date(s): 12/16/17 - 12/16/17 [facility] [address] [place] [address]- Encounter Diagnosis Elevated prostate specific antigen [PSA] (Final) - 03/01/18 Essential (primary) hypertension (Final) - Ulcerative colitis, unspecified, without complications (Final) - Ankylosing spondylitis of unspecified sites in spine (Final) - Chronic pain syndrome (Final) - Cyst of kidney, acquired (Final) - Calculus of kidney (Final) - Hyperlipidemia, unspecified (Final) - Nocturia (Final) - Obesity, unspecified (Final) - Acquired absence of other specified parts of digestive tract (Final) - Other intermediate project manager (current) drug therapy (Final) - Discharge Disposition: Home or Self Care Attending Physician: Kraig Smith MD Admitting Physician: Kraig Smith MD Referring Physician: Kraig Smith MD Vital Signs Most recent to oldest 1 2 3 [Reference Range]: Height 177.8 cm (12/16/17 8:27 AM) Blood Pressure [90-140/60-90 141/62 mmHg 114/63 mmHg 162/80 mmHg mmHg] *HI* (12/16/17 11:40 AM) *HI* (12/16/17 12:00 PM) (12/16/17 8:29 AM) Weight 113.636 kg (12/16/17 8:27 AM) Body Mass Index 35.95 m2 (12/16/17 8:27 AM) Problem List Condition Effective Dates Status [...] from [employer] on 08/28/14. Lt 4th [id number] migrated from [employer] on .7Data migrated from [employer] on 10/15/14. Allergies, Adverse Reactions, Alerts Substance Reaction Severity Status sulfa drugs1 Critical Active aspirin2 Critical Active 1Data migrated from [employer] on 10/28/14. Originally documented as SULFA.2Data migrated from [employer] on 07/30/14. Originally documented as ASA. Medications fentaNYL Route: IV, Drug form: INJ, ONCE, Dosing Weight 113.636, kg, Start date: 11:00:00 CDT, Stop date: 12/16/17 11:00:00 CDT Notes: (Same as: Sublimaze) Preservative free. Start Date: 12/16/17 Stop Date: 12/16/17 Status: OrderedVersed 3 mg, 3 mL, Route: IV, Drug form: INJ, ONCE, Dosing Weight 113.636, kg, Start date: 12/16/17 11:00:00 CDT, Stop date: 12/16/17 11:00:00 CDT Notes: (Same as: Versed) MEDICATION WASTE Product Size: 2 mgProduct Wasted: _1__ mg Start Date: 12/16/17 Stop Date: 12/16/17 Status: Ordered Results CHEM PANEL Most recent to oldest [Reference Range]: 1 Creatinine Lvl [0.50-1.40 mg/dL] 1.26 mg/dL (12/16/17 8:29 AM) eGFR 55 mL/min/1.73m2 1 *NA* (12/16/17 8:29 AM) 1Result Comment: The eGFR is calculated using the CKD-EPI formula. In most young , healthy individualsthe eGFR will be >90 mL/min/1.73m2. The eGFR declines with age. An eGFR of 60-89 may be normal insome populations, particularly the elderly, for whom the CKD-EPI formula has not been extensively validated. Use of the eGFR is not recommended in the following populations: Individuals with unstable creatinine concentrations, including patients and those with serious co-morbid conditions. Patients with extremes in muscle mass or diet. The data above are obtained from the National Kidney Disease Education Program ( NKDEP) which additionally recommends that when the eGFR is used in patients with extremes of body mass index for purposesof drug dosing, the eGFR should be multiplied by the estimated BMI.HEMATOLOGY Most recent to oldest [Reference Range]: 1 Platelet [133-450 K/CMM] 310 K/CMM (12/16/17 8:35 AM) PT [12.0-14.7 seconds] 12.1 seconds (12/16/17 8:29 AM) INR [0.85-1.17] 0.90 (12/16/17 8:29 AM) PTT [22.9-35.8 seconds] 26.9 seconds (12/16/17 8:29 AM) Immunizations Given and Recorded Vaccine Date Status Refusal Reason influenza virus vaccine, inactivated 12/30/17 Recorded influenza virus vaccine, inactivated 03/01/17 Recorded zoster vaccine, inactivated1 06/22/17 Recorded Hx influenza vaccine-unspecified2 03/11/12 Given 1Result Comment: [09/30/2017] First out of two [id number] Comment: fluzone. Migrated from [employer] ; Data migrated from [employer] on 05/03/2015. Procedures Procedure Date Related Diagnosis [...]
--- OUTSIDE RECORDS SUMMARY | 2018-10-27 10:59 | XMS REPORT | Summary of Care ---
:1940 Author Organization [facility] Urology [place] Address [address] [place] [address]- Care Team Providers Name Role Phone Quentin Gutierrez Primary Care Physician Encounter HQ Eda_diaz(FIN) [id number] Date(s): 12/18/17 - 01/17/18 [facility] [address] [place] [address]- [phone] Attending Physician: Kraig Smith MD Vital Signs No data available for this [...] from [employer] on 08/28/14. Lt 4th [id number] migrated from [employer] on .7Data migrated from [employer] on 10/15/14. Allergies, Adverse Reactions, Alerts Substance Reaction Severity Status sulfa drugs1 Critical Active aspirin2 Critical Active 1Data migrated from [employer] on 10/28/14. Originally documented as SULFA.2Data migrated from [employer] on 07/30/14. Originally documented as ASA. Medications No data available for this section Results No data available for this section Immunizations Given and Recorded Vaccine Date Status Refusal Reason influenza virus vaccine, inactivated 12/30/17 Recorded influenza virus vaccine, inactivated 03/01/17 Recorded zoster vaccine, inactivated1 06/22/17 Recorded Hx influenza vaccine-unspecified2 03/11/12 Given 1Result Comment: [09/30/2017] First out of two [id number] Comment: fluzone. Migrated from [facility] ; Data migrated from [employer] on 05/03/2015. Procedures Procedure Date Related Diagnosis [...]
--- OUTSIDE RECORDS SUMMARY | 2018-10-27 10:59 | XMS REPORT | Summary of Care ---
:1940 Author Organization [facility] Internal Medicine [place] Address [address] [place] [address]- Encounter HQ Noahr_diaz(FIN) [id number] Date(s): 06/24/17 - 06/24/17 [facility] Internal Medicine [place] [address] [place] [address] [phone] Discharge Disposition: Home or Self Care Attending Physician: Quentin Gutierrez MD Vital Signs Most recent to oldest [Reference Range]: 1 Height 173.99 cm (06/24/17 1:57 PM) Temperature Oral [96.4-99.1 DegF] 98.1 DegF (06/24/17 1:57 PM) Blood Pressure [90-140/60-90 mmHg] 113/70 mmHg (06/24/17 1:57 PM) Peripheral Pulse Rate [60-100 bpm] 87 bpm (06/24/17 1:57 PM) Weight 115.455 kg (06/24/17 1:57 PM) Body Mass Index 38.14 m2 (06/24/17 1:57 PM) Problem List Condition Effective Dates Status [...] from [employer] on 08/28/14. Lt 4th [id number] migrated from [employer] on .7Data migrated from [employer] on 10/15/14. Allergies, Adverse Reactions, Alerts Substance Reaction Severity Status sulfa drugs1 Critical Active aspirin2 Critical Active 1Data migrated from [employer] on 10/28/14. Originally documented as SULFA.2Data migrated from [employer] on 07/30/14. Originally documented as ASA. Medications tramadol 50 mg oral tablet 50 mg=1 tab, PO, Q4H, # 150 tab, 3 Refill(s) Start Date: 06/24/17 Status: Ordered Results No data available for this section Immunizations Given and Recorded Vaccine Date Status Refusal Reason influenza virus vaccine, inactivated 03/01/17 Recorded Hx influenza vaccine-unspecified1 03/11/12 Given 1Result Comment: fluzone. Migrated from OBS ; Data migrated from [employer] on 05/03/2015. Procedures Procedure Date Related Diagnosis Body Site Status Partial amputation of lesser toe 11/03/12 Completed Colectomy Completed Hernia repair Completed Social History Social History Type Response Alcohol Never Smoking Status Never smoker; Type: Pt dips; Exposure to Tobacco Smoke None; Cigarette Smoking Last 365 Days No; Reg Smoking Cessation Counseling No1 entered on: 06/24/17 1Pt dips - 1 can will last 5-6 days - starting dipping about age 47 yrs. Assessment and Plan No data available for this section
--- OUTSIDE RECORDS SUMMARY | 2018-10-27 10:59 | XMS REPORT | Summary of Care ---
:1940 Author Organization [facility] Urology [facility] Address [address] [place] [address] Encounter HQ Encntr_alias(FIN) [id number] Date(s): 12/18/17 - 12/18/17 [facility] Urology [facility] [address] [address] [phone] Attending Physician: Kraig Smith MD Vital Signs [...] from [employer] on 08/28/14. Lt 4th [id number] migrated from [employer] on .7Data migrated [...] 1Result Comment: [09/30/2017] First out of two [id number] Comment: fluzone. Migrated from [facility] ; Data migrated from [employer] on 05/03/2015. Procedures Procedure Date Related Diagnosis [...]
--- OUTSIDE RECORDS SUMMARY | 2018-10-27 10:59 | XMS REPORT | Summary of Care ---
:1940 Author Organization [facility] Internal Medicine [place] Address [address] [place] [address]- Encounter HQ Noahr_diaz(FIN) [id number] Date(s): 06/05/17 - 06/06/17 [facility] Internal Medicine [place] [address] [place] [address] [phone] Vital Signs No data available for this [...] from [employer] on 08/28/14. Lt 4th [id number] migrated from [employer] on .7Data migrated from [employer] on 10/15/14. Allergies, Adverse Reactions, Alerts Substance Reaction Severity Status sulfa drugs1 Critical Active aspirin2 Critical Active 1Data migrated from [employer] on 10/28/14. Originally documented as SULFA.2Data migrated from [employer] on 07/30/14. Originally documented as ASA. Medications hydrochlorothiazide-losartan 25 mg-100 mg oral tablet 1 tab, PO, Daily, # 90 tab, 3 Refill(s), Pharmacy: [facility] Start Date: 06/05/17 Status: Ordered Results No data available for this section Immunizations Given and Recorded Vaccine Date Status Refusal Reason influenza virus vaccine, inactivated 03/01/17 Recorded Hx influenza vaccine-unspecified1 03/11/12 Given 1Result Comment: fluzone. Migrated from [facility] ; Data migrated from [employer] on 05/03/2015. Procedures Procedure Date Related Diagnosis [...]
--- OUTSIDE RECORDS SUMMARY | 2018-10-27 11:00 | XMS REPORT | Summary of Care ---
:1940 Author Organization [facility] Urology [facility] Address [address] [place] [address] Encounter HQ Encntr_alias(FIN) [id number] Date(s): 12/27/17 - 12/28/17 [facility] [address] [address] [phone] Vital Signs No data available for this [...] from [employer] on 08/28/14. Lt 4th [id number] migrated from [employer] on .7Data migrated [...] 1Result Comment: [09/30/2017] First out of two [id number] Comment: fluzone. Migrated from [facility] ; Data migrated from [employer] on 05/03/2015. Procedures Procedure Date Related Diagnosis [...]
--- OUTSIDE RECORDS SUMMARY | 2018-10-27 11:00 | XMS REPORT | Summary of Care ---
:1940 Author Organization [facility] Radiology [place] Address [address] [place] [address]- Care Team Providers Name Role Phone Quentin Gutierrez Primary Care Physician Encounter HQ Chandrikaestherfrancisco_diaz(FIN) [id number] Date(s): 08/12/18 - 08/12/18 [facility] Radiology [address] [place] [phone] Attending Physician: VISIT, NURSE ST XRAY Vital [...] from [employer] on 08/28/14. Lt 4th [id number] migrated from [employer] on .7Data migrated from [employer] on 10/15/14. Allergies, Adverse Reactions, Alerts Substance Reaction Severity Status sulfa drugs1 Critical Active aspirin2 Critical Active 1Data migrated from [employer] on 10/28/14. Originally documented as SULFA.2Data migrated from [employer] on 07/30/14. Originally documented as ASA. Medications No data available for this section Results No data available for this section Immunizations Given and Recorded Vaccine Date Status Refusal Reason influenza virus vaccine, inactivated 12/30/17 Recorded influenza virus vaccine, inactivated 03/01/17 Recorded zoster vaccine, inactivated1 06/22/17 Recorded Hx influenza vaccine-unspecified2 03/11/12 Given 1Result Comment: [09/30/2017] First out of two [id number] Comment: fluzone. Migrated from [facility] ; Data migrated from [employer] Mess[employer] on 05/03/2015. Procedures Procedure Date Related Diagnosis [...]
--- OUTSIDE RECORDS SUMMARY | 2018-10-27 11:00 | XMS REPORT | Summary of Care ---
:1940 Author Organization [facility] Outpatient Imaging [place] Address [id number] [place] [address]- Encounter HQ Encntr_alias(FIN) [id number] Date(s): 11/28/17 - 11/28/17 [facility] Outpatient Imaging [place] [address]- [place] Encounter Diagnosis Elevated prostate specific antigen [PSA] (Final) - 12/05/17 Cyst of kidney, acquired (Final) - Calculus of ureter (Final) - Discharge Disposition: Home or Self Care Attending Physician: Kraig Smith MD Referring Physician: Kraig Smith MD Vital Signs No [...] from [employer] on 08/28/14. Lt 4th [id number] migrated from [employer] on .7Data migrated from [employer] on 10/15/14. Allergies, Adverse Reactions, Alerts Substance Reaction Severity Status sulfa drugs1 Critical Active aspirin2 Critical Active 1Data migrated from [employer] on 10/28/14. Originally documented as SULFA.2Data migrated from [employer] on 07/30/14. Originally documented as ASA. Medications No data available for this section Results No data available for this section Immunizations Given and Recorded Vaccine Date Status Refusal Reason influenza virus vaccine, inactivated 12/30/17 Recorded influenza virus vaccine, inactivated 03/01/17 Recorded zoster vaccine, inactivated1 06/22/17 Recorded Hx influenza vaccine-unspecified2 03/11/12 Given 1Result Comment: [09/30/2017] First out of two [id number] Comment: fluzone. Migrated from OBS ; Data migrated from [employer] on 05/03/2015. Procedures Procedure Date Related Diagnosis [...]
--- OUTSIDE RECORDS SUMMARY | 2018-10-27 11:00 | XMS REPORT | Summary of Care ---
:1940 Author Organization [facility] Internal Medicine [place] Address [address] [place] [address]- Encounter HQ Eda_diaz(FIN) [id number] Date(s): 10/28/17 - 10/28/17 [facility] Internal Medicine [place] [id number] [facility] [place] [address] [phone] Discharge Disposition: Home or Self Care Attending Physician: Quentin Gutierrez MD Vital Signs Most recent to oldest [Reference Range]: 1 Height 172.72 cm (10/28/17 2:38 PM) Temperature Oral [96.4-99.1 DegF] 98.4 DegF (10/28/17 2:38 PM) Blood Pressure [90-140/60-90 mmHg] 134/74 mmHg (10/28/17 2:38 PM) Peripheral Pulse Rate [60-100 bpm] 89 bpm (10/28/17 2:38 PM) Weight 114.545 kg (10/28/17 2:38 PM) Body Mass Index 38.4 m2 (10/28/17 2:38 PM) Problem List Condition Effective Dates Status [...] on 08/28/14.2Data migrated from [employer] on 5/30/15.3Data migrated from [employer] on 08/28/14.4Data migrated from [employer] on 08/28/14. Lt 4th [id number] migrated from [employer] on .7Data migrated [...] # 150 tab, 3 Refill(s) Start Date: 10/28/17 Status: Ordered Results No data available for this section Immunizations Given and Recorded Vaccine Date Status Refusal Reason zoster vaccine, inactivated1 06/22/17 Recorded influenza virus vaccine, inactivated 03/01/17 Recorded Hx influenza vaccine-unspecified2 03/11/12 Given 1Result Comment: [09/30/2017] First out of two [id number] Comment: fluzone. Migrated from OBS ; Data [...] Reg Smoking Cessation Counseling No1 entered on: 10/28/17 1Pt dips - 1 can will last 5-6 days - starting dipping about age 47 yrs. Assessment and Plan No data available for this section
--- OUTSIDE RECORDS SUMMARY | 2018-10-27 11:00 | XMS REPORT | Summary of Care ---
:1940 Author Organization [facility] Internal Medicine [place] Address [address] [place] [address] Care Team Providers Name Role Phone Quentin Gutierrez Primary Care Physician Encounter HQ Chandrikaestherivet(CHRISTOS) [id number] Date(s): 03/04/18 - 03/04/18 [facility] Internal Medicine [place] [address] [place] [address] [phone] Discharge Disposition: Home or Self Care Attending Physician: Quentin Gutierrez MD Vital Signs Most recent to oldest [Reference Range]: 1 Height 172.72 cm (03/04/18 10:16 AM) Temperature Oral [96.4-99.1 DegF] 98.1 DegF (03/04/18 10:16 AM) Blood Pressure [90-140/60-90 mmHg] 159/81 mmHg *HI* (03/04/18 10:16 AM) Peripheral Pulse Rate [60-100 bpm] 75 bpm (03/04/18 10:16 AM) Weight 115 kg (03/04/18 10:16 AM) Body Mass Index 38.55 m2 (03/04/18 10:16 AM) Problem List Condition Effective Dates Status [...] from [employer] on 08/28/14. Lt 4th [id number] migrated from [employer] on .7Data migrated [...] Daily, # 90 tab, 3 Refill(s), Pharmacy: [facility] Start Date: 06/16/18 Status: Orderedtramadol 50 mg oral tablet 50 mg=1 tab, PO, Q4H, # 150 tab, 3 Refill(s) Start Date: 03/04/18 Stop Date: 07/08/18 Status: Discontinuedtramadol 50 mg oral tablet 50 mg=1 tab, PO, Q4H, # 150 tab, 3 Refill(s) Start Date: 03/04/18 Stop Date: 07/08/18 Status: Discontinued Results No data available for this section Immunizations Given and Recorded Vaccine Date Status Refusal Reason influenza virus vaccine, inactivated 12/30/17 Recorded influenza virus vaccine, inactivated 03/01/17 Recorded zoster vaccine, inactivated1 06/22/17 Recorded Hx influenza vaccine-unspecified2 03/11/12 Given 1Result Comment: [09/30/2017] First out of two [id number] Comment: fluzone. Migrated from OBS ; Data [...]
--- OUTSIDE RECORDS SUMMARY | 2018-10-27 11:00 | XMS REPORT | Summary of Care ---
:1940 Author Organization [facility] Radiology [place] Address [address] [place] [address]- Care Team Providers Name Role Phone Quentin Gutierrez Primary Care Physician Encounter HQ Chandrikaestherfrancisco_diaz(FIN) [id number] Date(s): 08/12/18 - 08/12/18 [facility] Radiology [address] [place] [address] [phone] Attending Physician: VISIT, NURSE ST XRAY Vital [...] from [employer] on 08/28/14. Lt 4th [id number] migrated from [employer] on .7Data migrated from [employer] on 10/15/14. Allergies, Adverse Reactions, Alerts Substance Reaction Severity Status sulfa drugs1 Critical Active aspirin2 Critical Active 1Data migrated from [employer] on 10/28/14. Originally documented as SULFA.2Data migrated from [employer] on 07/30/14. Originally documented as ASA. Medications No data available for this section Results No data available for this section Immunizations Given and Recorded Vaccine Date Status Refusal Reason influenza virus vaccine, inactivated 12/30/17 Recorded influenza virus vaccine, inactivated 03/01/17 Recorded zoster vaccine, inactivated1 06/22/17 Recorded Hx influenza vaccine-unspecified2 03/11/12 Given 1Result Comment: [09/30/2017] First out of two [id number] Comment: fluzone. Migrated from [facility] ; Data migrated from [employer] on 05/03/2015. Procedures Procedure Date Related Diagnosis [...]
--- OUTSIDE RECORDS SUMMARY | 2018-10-27 11:00 | XMS REPORT | Summary of Care ---
:1940 Author Organization [facility] Radiology [place] Address [address] [place] [address]- Care Team Providers Name Role Phone Quentin Gutierrez Primary Care Physician Encounter HQ Eda_diaz(FIN) [id number] Date(s): 08/12/18 - 08/12/18 [facility] Radiology [address] [place] [address] [phone] Attending Physician: Kraig Smith MD Vital Signs [...] from [employer] on 08/28/14. Lt 4th [id number] migrated from [employer] on .7Data migrated from [employer] on 10/15/14. Allergies, Adverse Reactions, Alerts Substance Reaction Severity Status sulfa drugs1 Critical Active aspirin2 Critical Active 1Data migrated from [employer] on 7/30/15. Originally documented as SULFA.2Data migrated from [employer] on 07/30/14. Originally documented as ASA. Medications No data available for this section Results No data available for this section Immunizations Given and Recorded Vaccine Date Status Refusal Reason influenza virus vaccine, inactivated 12/30/17 Recorded influenza virus vaccine, inactivated 03/01/17 Recorded zoster vaccine, inactivated1 06/22/17 Recorded Hx influenza vaccine-unspecified2 03/11/12 Given 1Result Comment: [09/30/2017] First out of two [id number] Comment: fluzone. Migrated from [facility] ; Data migrated from [employer] on 05/03/2015. Procedures Procedure Date Related Diagnosis [...]
--- OUTSIDE RECORDS SUMMARY | 2018-10-27 11:00 | XMS REPORT | Summary of Care ---
:1940 Author Organization [facility] Radiology [place] Address [address] [place] [address]- Care Team Providers Name Role Phone Quentin Gutierrez Primary Care Physician Encounter HQ Noahivet(CHRISTOS) [id number] Date(s): 08/12/18 - 08/12/18 [facility] Radiology [address] [place] [phone] Discharge Disposition: Home or Self Care Attending [...] from [employer] on 08/28/14. Lt 4th [id number] migrated from [employer] on .7Data migrated from [employer] on 10/15/14. Allergies, Adverse Reactions, Alerts Substance Reaction Severity Status sulfa drugs1 Critical Active aspirin2 Critical Active 1Data migrated from [employer] on 10/28/14. Originally documented as SULFA.2Data migrated from [employer] on 07/30/14. Originally documented as ASA. Medications No data available for this section Results No data available for this section Immunizations Given and Recorded Vaccine Date Status Refusal Reason influenza virus vaccine, inactivated 12/30/17 Recorded influenza virus vaccine, inactivated 03/01/17 Recorded zoster vaccine, inactivated1 06/22/17 Recorded Hx influenza vaccine-unspecified2 03/11/12 Given 1Result Comment: [09/30/2017] First out of two [id number] Comment: fluzone. Migrated from OBS ; Data migrated from [employer] on 05/03/2015. Procedures Procedure Date Related Diagnosis [...]
--- OUTSIDE RECORDS SUMMARY | 2018-10-27 11:00 | XMS REPORT | Summary of Care ---
:1940 Author Organization [facility] Urology [place] Address [address] [place] [address]- Care Team Providers Name Role Phone Quentin Gutierrez Primary Care Physician Encounter HQ Noahivet(CHRISTOS) [id number] Date(s): 08/12/18 - 08/12/18 [facility] [address] [facility] [address] [address] [place] [phone]- Discharge Disposition: Home or Self Care Attending Physician: Kraig Smith MD Vital Signs Most recent to oldest [Reference Range]: 1 Height 172.72 cm (08/12/18 10:54 AM) Temperature Oral [96.4-99.1 DegF] 98.2 DegF (08/12/18 10:54 AM) Blood Pressure [90-140/60-90 mmHg] 148/78 mmHg *HI* (08/12/18 10:54 AM) Peripheral Pulse Rate [60-100 bpm] 80 bpm (08/12/18 10:54 AM) Weight 112.273 kg (08/12/18 10:54 AM) Body Mass Index 37.63 m2 (08/12/18 10:54 AM) Problem List Condition Effective Dates Status [...] from [employer] on 08/28/14. Lt 4th [id number] migrated from [employer] on .7Data migrated [...] 1Result Comment: [09/30/2017] First out of two [id number] Comment: fluzone. Migrated from OBS ; Data [...]
--- OUTSIDE RECORDS SUMMARY | 2018-10-27 11:00 | XMS REPORT | Summary of Care ---
:[address] [facility] Outpatient Imaging [place] Address [address] [place] [address]- Encounter HQ Encntr_alias(FIN) [id number] Date(s): 11/26/17 - 11/26/[address] [facility] Outpatient Imaging [address] [address]- [place] Encounter Diagnosis Elevated prostate specific antigen [PSA] (Final) - 12/02/17 Discharge Disposition: Home or Self Care Attending [...] from [employer] on 08/28/14. Lt 4th [id number] migrated from [employer] on .7Data migrated [...] 1Result Comment: [09/30/2017] First out of two [id number] Comment: fluzone. Migrated from [facility] ; Data migrated from [employer] on 05/03/2015. Procedures Procedure Date Related Diagnosis [...]
--- OUTSIDE RECORDS SUMMARY | 2018-10-27 11:01 | XMS REPORT | Encounter Summary ---
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 History of ulcerative colitis 3. Benign essential hypertension high blood pressure: care instructions learning about high blood pressure Discussion Note: None recorded. Plan of Care Reminders Provider Appointments Follow up Markus Richter MD 11/06/2018 8:45AM Lab BMP, Serum [facility] or Plasma 08/07/2018 [facility] Center (Lab) Referral None recorded. Procedures None recorded. Surgeries None recorded. Imaging None recorded. Medications Name Start Date Combigan 0.2 %-0.5 % eye drops INSTILL 1 DROP INTO AFFECTED EYE(S) BY OPHTHALMIC ROUTE EVERY 12 HOURS losartan 100 mg-hydrochlorothiazide 25 mg tablet Lumigan 0.01 % eye drops meloxicam 15 mg tablet Take 1 tablet every day by oral route. tramadol 50 mg tablet Take 1 tablet every day by oral route. take as needed for pain Medications Administered None recorded. Vitals Weight Blood Pressure 248 lbs 151/79 mm[Hg] Lab Results None recorded. Allergies Code Code System Name Reaction Severity Status Onset 1191 RxNorm Aspirin Vomiting Moderate Active Sulfa Rash Moderate Active (Sulfonamide Antibiotics) Problems Name Status Onset Date Source Benign Essential Hypertension Active 08/07/2018 History of Ulcerative Colitis Active 08/07/2018 Giuliana's Disease Active Encounter Osteoarthritis of Knee Active Encounter Ankylosing Spondylitis Active Encounter Procedures Date Name Performed by 04/01/1966 Colectomy W/ileoanal Anast Information not available Hernia Repair W/mesh Information not available Tonsillectomy Information not available Appendectomy Information not available Knee Arthroscopy Dx Information not available Vaccine List None recorded. Social History Smoking Status Never Smoker Past Encounters 08/07/2018 Giuliana's Disease; History of Ulcerative Colitis; Benign Essential Hypertension Markus Richter MD: [address] [place] [address], [address], [place] [address], Ph. 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 Physical Exam Dr. Richter Brief Adult Exam - M/F Reported By: Patient Constitutional: General Appearance: well-developed, overweight. Level of Distress: NAD. Ambulation: ambulating normally ENMT: Ears: no lesions on external ear, EACs clear, TMs clear, TM mobility normal. Nose: nares patent, nasal passages clear. Oropharynx: moist mucous membranes, no erythema, no exudates, tonsils not enlarged Neck: Neck: supple, trachea midline, no masses, FROM. Lymph Nodes: no cervical LAD, no supraclavicular LAD Lungs: Auscultation: breath sounds normal, good air movement, CTA except as noted, no wheezing, no rales/crackles, no rhonchi Cardiovascular: Heart Auscultation: RRR, no rubs, no gallops Back: Thoracolumbar Appearance: normal curvature Musculoskeletal: Edema absent
--- OUTSIDE RECORDS SUMMARY | 2018-10-27 11:01 | XMS REPORT | Summary of Care ---
:1940 Author Organization [facility] Urology [facility] Address [address] [address] Encounter HQ Encntr_alilyndsay(FIN) [id number] Date(s): 01/01/18 - 01/02/18 [facility] [address] [address] [phone] Vital Signs No data available for this [...] from [employer] on 08/28/14. Lt 4th [id number] migrated from [employer] on .7Data migrated [...] 1Result Comment: [09/30/2017] First out of two [id number] Comment: fluzone. Migrated from [facility] ; Data migrated from [employer] on 05/03/2015. Procedures Procedure Date Related Diagnosis [...]
--- OUTSIDE RECORDS SUMMARY | 2018-10-27 11:01 | XMS REPORT | Summary of Care ---
:1940 Author Organization [facility] Internal Medicine [place] Address [address] [place] [address]- Encounter HQ Eda_diaz(FIN) [id number] Date(s): 10/28/17 - 10/28/17 [facility] Internal Medicine [place] [address] [facility] [place] [address] [phone] Discharge Disposition: Home or Self Care Attending [...] from [employer] on 08/28/14. Lt 4th [id number] migrated from [employer] on .7Data migrated [...] 150 tab, 3 Refill(s) Start Date: 10/28/17 Stop Date: 03/04/18 Status: Discontinued Results No data available for this section Immunizations Given and Recorded Vaccine Date Status Refusal Reason influenza virus vaccine, inactivated 12/30/17 Recorded influenza virus vaccine, inactivated 03/01/17 Recorded zoster vaccine, inactivated1 06/22/17 Recorded Hx influenza vaccine-unspecified2 03/11/12 Given 1Result Comment: [09/30/2017] First out of two [id number] Comment: fluzone. Migrated from OBS ; Data [...]
[2018-10-27] MEDS: PHENYLEPHRINE 10% OPTH 5ML ONE ×3 (11:21→11:41)
[2018-10-27] MEDS: CYCLOPENTOLATE 1% OPTH 2 ML ONE ×3 (11:21→11:41)
[2018-10-27] MEDS ORDERED: LIDOCAINE 2% MPF 5 ML VIAL ONE (11:28)
[2018-10-27] MEDS ORDERED: BUPIVACAINE 0.25% PF 10 ML VIAL ONE (11:28)
[2018-10-27] MEDS ORDERED: TETRACAINE HCL 0.5% 4ML OPTH ONE (11:28)
[2018-10-27] MEDS ORDERED: LIDOCAINE HCL/PF 3.5% OPTH GEL ONE (11:28)
[2018-10-27] MEDS ORDERED: NA CHLORIDE 0.9% 500 ML ONE (11:29)
[2018-10-27] MEDS ORDERED: EPINEPHRINE/PF 1 MG/ML AMP ONE (11:48)
[2018-10-27] MEDS ORDERED: LIDOCAINE 1% MPF 2 ML AMPULE ONE (11:48)
[2018-10-27] MEDS ORDERED: BALANCED SALT IRRIG PLAIN 500 ML BTL IRR ONE (11:48)
[2018-10-27] MEDS ORDERED: DUOVISC 1 KIT OPTH ONE (11:48)
[2018-10-27] MEDS ORDERED: NS 0.9% VIAL 10 ML ONE (11:48)
[2018-10-27] MEDS ORDERED: Mastisol Adhesive Liq ONE (12:41)
[2018-10-27] MEDS ORDERED: GLYCOPYRROLATE 0.2 MG/ML SYR ONE (12:43)
[2018-10-27] MEDS ORDERED: NEOSTIGMINE 1 MG/ML -10 ML VIAL ONE (12:44)
[2018-10-27] MEDS ORDERED: MIDAZOLAM HCL 2 MG/2 ML INJ ONE (12:45)
[2018-10-27] MEDS: MOXIFLOXACIN HCL 10 DROPS/ML **OR USE OPTH ONE ×2 (13:00→13:11)
--- NOTE | 2018-10-27 13:18 | P.BOP ---
Preoperative diagnosis: Nuclear sclerotic cataract OS Postoperative diagnosis: Same Primary procedure: Phacoemulsification with IOL OS Estimated blood loss: None Anesthesia: Local (Topical with anesthesia for cataract surgery) Complications: None Implants: ZCB00 +16.5 Transferred to: Other (Day surgery) Condition: Good
[2018-10-27] MEDS ORDERED: BSS OPTHALMIC SOL 15 ML BOT OPTH ONE (14:07)
--- NOTE | 2018-10-28 00:34 | OP ---
Date of Procedure: 10/27/2018 Surgeon: Gudelia Ronquillo MD Anesthesiologist: Abimael Dunne CRNA and Abdiel Harper MD Preoperative Diagnosis: Nuclear sclerotic cataract, left eye. Operation Performed: Phacoemulsification with intraocular lens implant, left eye. Anesthesia: Per cataract surgery. Complications: None. Description Of Procedure: In the operating room, the patient was prepped and draped in the usual sterile fashion for ophthalmic surgery. A lid speculum was placed in the OS. Two paracentesis sites were made superiorly and inferiorly in the limbal cornea. Viscoat was placed in the anterior chamber and a crescent blade was used to make a corneal groove and tunnel, and a keratome was used to enter the anterior chamber. Provisc was placed in the anterior chamber and a 360 degree capsulotomy was performed with a cystitome. The lens was hydrodissected with BSS and rotated freely. The lens was removed with a stop and chop technique. 16.53 phaco CDE was used to remove the lens. Residual cortex was removed with the irrigation and aspiration. Provisc was placed in the capsular bag. A ZCB00 +16.5 lens was placed in the capsular bag without complications. Irrigation and aspiration was used to remove residual viscoelastic. The paracentesis sites were hydrated with BSS. The wound and paracentesis sites were inspected and found to be watertight. Vigamox 0.07 cc was placed intracamerally at the end of the procedure. The eye was irrigated with balanced salt solution. The eye was patched with a soft cotton patch and Tovar metal shield. The patient was returned to day surgery in good condition. Comments: Akten was placed in the eye in Day Surgery and irrigated out of the eye with BSS in the OR. Preservative free 1% lidocaine was placed in the anterior chamber prior to Viscoat. Discharge Instructions: Mr. Cazares is discharged to home in good condition. He is to follow up with Dr. Ronquillo in the morning. SUZANNE/PACHECO Voice ID: [id number] Report ID: [id number] OLMAN
== END 2018-10-27 13:46 | disposition home or self-care (01) ==
LOC: OR 10:54
PROVIDERS: ATTEND Ophthalmology Retina Specialist
PROC: 08RK3JZ Replacement of Left Lens with Synthetic Substitute, Percutaneous Approach (ICD-10-PCS; principal; 2018-10-27 11:00)
DX: H25.12 Age-related nuclear cataract, left eye (principal); E78.00 Pure hypercholesterolemia, unspecified; I10 Essential (primary) hypertension; Z79.899 Other long term (current) drug therapy
CPT/HCPCS: 66984; J2710; J0171; J2250; J2001

== ENCOUNTER 2018-12-08 10:23 | Day surgery (SDC) | payer OTHER ==
--- OUTSIDE RECORDS SUMMARY | 2018-12-08 10:28 | XMS REPORT | Summary of Care ---
:1940 Author Organization [facility] Internal Medicine [place] Address [address] [place] [address] Care Team Providers Name Role Phone Quentin Gutierrez Primary Care Physician Encounter HQ Noahr_diaz(FIN) [id number] Date(s): 11/11/18 - 11/11/18 [facility] Internal Medicine [place] [address] [place] [address] [phone] Attending Physician: Quentin Gutierrez MD Vital Signs No data available for [...] from [employer] on 08/28/14. Lt 4th [id number] migrated from [employer] on .7Data migrated from [employer] on 10/15/14. Allergies, Adverse Reactions, Alerts Substance Reaction Severity Status sulfa drugs1 Critical Active aspirin2 Critical Active 1Data migrated from [employer] on 10/28/14. Originally documented as SULFA.2Data migrated from [employer] on 07/30/14. Originally documented as ASA. Medications No data available for this section Results No data available for this section Immunizations Given and Recorded Vaccine Date Status Refusal Reason influenza virus vaccine, inactivated 12/30/17 Recorded influenza virus vaccine, inactivated 03/01/17 Recorded zoster vaccine, inactivated1 06/22/17 Recorded Hx influenza vaccine-unspecified2 03/11/12 Given 1Result Comment: [09/30/2017] First out of two [id number] Comment: fluzone. Migrated from [facility] ; Data migrated from [employer] on 05/03/2015. Procedures Procedure Date Related Diagnosis [...]
--- OUTSIDE RECORDS SUMMARY | 2018-12-08 10:28 | XMS REPORT | Continuity of Care Document ---
:1940 Author Organization [employer] Care Team Providers Name Role Phone [employer] Unavailable Unavailable Problems Problem Status Onset Classification Date Comments Source Date Reported Elevated prostate 03/01/20 07/05/2018 OPID specific antigen 18 [place] [PSA] [place] R97.20 - ELEVATED Active 11/15/19 [facility] PROSTATE SPECIFIC 18 [place] ANT [place] Preoperative Resolved 11/08/19 Problem 09/22/2018 Data migrated from [facility] on 10/16/14. procedures6, 7 13 [facility] Medical [facility], OPID [place] Preoperative Resolved 11/08/19 Problem 11/13/2018 [facility] 10/16/14. procedures 13 [facility] 10/15/14. Medical (procedure) Group Chronic pain Active 11/02/19 Problem 09/22/2018 Data syndrome1 12 migrated Medical from [facility] OP[facility] on 08/28/14. [place] Glaucoma2 Active 11/02/19 Problem 09/22/2018 Data 12 migrated Medical from [facility] OPID on 08/28/14. [place] Hyperlipidemia3 Active 11/02/19 Problem 09/22/2018 Data 12 migrated Medical from [facility] OPID on 08/28/14. [place] Hypertensive Active 11/02/19 Problem 09/22/2018 Data disorder4 12 migrated Medical from [facility] OPID on 08/28/14. [place] Chronic pain Active 11/02/19 Problem 11/13/2018 Data syndrome 12 migrated Medical (disorder) from [facility] on 08/28/14. Glaucoma Active 11/02/19 Problem 11/13/2018 Data (disorder) 12 [facility] 08/[facility]14. Hyperlipidemia Active 11/02/19 Problem 11/13/2018 Data MH (disorder) 12 migrated Medical from [facility] on 08/28/14. Hypertensive Active 11/02/19 Problem 11/13/2018 Data disorder, systemic 12 migrated Medical arterial from [facility] (disorder) [facility] on 08/28/14. 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 Medical Group, [place] Nocturia Active Problem 09/22/2018 Medical Group, OP[place] Obesity Active Problem 09/22/2018 Medical Group, OP[place] Osteomyelitis5 Resolved Problem 09/22/201810/2012 Lt 4th toe Medical Group, OPID [place] Elevated PSA Active Problem 09/22/2018 Medical Group, OPID [place] Essential 07/05/2018 [place] hypertension [place] Ulcerative 07/05/2018 [place] colitis, [place] unspecified, without complications 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 Chronic pain 07/05/2018 [place] syndrome [place] Cyst of kidney, 07/05/2018 OPID acquired [place] Calculus of kidney 07/05/2018 [place] Hyperlipidemia, 07/05/2018 [place] unspecified [place] Nocturia 07/05/2018 [place] Obesity, 07/05/2018 [place] unspecified [place] Acquired absence 07/05/2018 [place] of other specified [place] parts of digestive tract 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 [place] Calculus of ureter 06/17/2018 OPID [place] At risk for Active Problem 11/13/2018 negative response Medical to medication Group (finding) Intestinal Resolved Problem 11/13/2018 obstruction Medical (disorder) Group Ulcerative colitis Resolved Problem 11/13/2018 (disorder) Medical Group Diarrhea (finding) Active Problem 11/13/2018 Medical Group Kidney stone Active Problem 11/13/2018 (disorder) Medical Group Ankylosing Active Problem 11/13/2018 spondylitis Medical (disorder) Group Nocturia (finding) Active Problem 11/13/2018 Medical Group Obesity (disorder) Active Problem 11/13/2018 Medical Group Osteomyelitis Resolved Problem 11/13/201810/2012 Lt (disorder) 4th toe Medical Group Raised prostate Active Problem 11/13/2018 specific antigen Medical (finding) Group Medications Medication Details Route Status Patient Ordering Order Source Instructions Provider Date tramadol 50 mg=1 tab, Active hydrochloride 50 MG PO, Q6H, X 7 2019 Medical Oral Tablet day, # 28 Group tab, 0 Refill(s) Atropine Sulfate See Active 0.025 MG / Instructions, 2019 Medical Diphenoxylate 1 or 2 tabs Group Hydrochloride 2.5 MG by mouth up Oral Tablet [Lomotil] to 3 times daily as needed for diarrhea, # 60 tab, 2 Refill(s) Hydrochlorothiazide 1 tab, PO, Active 25 MG / Losartan Daily, # 90 2019 Medical Potassium 100 MG Oral tab, 3 Group Tablet Refill(s), Pharmacy: [facility] tramadol 50 mg=1 tab, No Longer hydrochloride 50 MG PO, Q4H, # Active 2018 Medical Oral Tablet 150 tab, 3 Group Refill(s) tramadol 50 mg=1 tab, No Longer hydrochloride 50 MG PO, Q4H, # Active 2018 Medical Oral Tablet 150 tab, 3 Group Refill(s) Triamcinolone 1 appl, TOP, No Longer Acetonide 0.25 MG/ML TID, PRN For Active 2017 Medical Topical Cream rash, X 14 Group day, # 15 gm, 0 Refill(s), Pharmacy: [facility] Fentanyl Route: IV, Inactive [place] Drug form: 2018 [place] INJ, ONCE, Dosing Weight 113.636, kg, Start date: 12/16/17 11:00:00 CDT, Stop date: 12/16/17 11:00:00 CDTNotes: (Same as: Sublimaze) Preservative free. Versed 3 mg, 3 mL, Inactive [place] Route: IV, 2017 [facility] Drug form: INJ, ONCE, Dosing Weight 113.636, kg, Start date: 12/16/17 11:00:00 CDT, Stop date: 12/16/17 11:00:00 CDTNotes: (Same as: Versed) MEDICATION WASTE Product Size: 2 mg Product Wasted: _1__ mg tramadol 50 mg=1 tab, No Longer 10/28/ hydrochloride 50 MG PO, Q4H, # Active 2018 Medical Oral Tablet 150 tab, 3 Group Refill(s) tramadol 50 mg=1 tab, Active 06/24/ hydrochloride 50 MG PO, Q4H, # 2018 Medical Oral Tablet 150 tab, 3 Group Refill(s) Hydrochlorothiazide 1 tab, PO, Active 25 MG / Losartan Daily, # 90 2018 Medical Potassium 100 MG Oral tab, 3 Group Tablet Refill(s), Pharmacy: [facility] tramadol 50 mg=1 tab, Active 02/25/ hydrochloride 50 MG PO, Q4H, # 2017 Medical Oral Tablet 150 tab, 3 Group Refill(s) Curcumin Curcumin, 1 Active tab, PO, 2017 Medical Daily, Group Refill(s) 0 Loratadine 10 MG Oral 10 mg=1 tab, Active Tablet [Claritin] PO, Daily 2016 Medical Group Glucosamine & 2 tab, PO, Active Chondroitin with MSM Daily, 0 2017 Medical Refill(s) Group Allergies, Adverse Reactions, Alerts Substance Category Reaction Severity Reaction Status Date Comments Source type Reported sulfa Assertion Critical Drug Active Data drugs<sup>1 allergy 2 migrated Medical </sup> [facility] 10[facility]14. Originally documented as SULFA. aspirin<sup Assertion Critical Drug Active Data >2</sup> allergy 2 migrated Medical from [facility] on 07/30/14. Originally documented as ASA. Immunizations Immunization Date Site Status Last Comments Source Given Updated influenza virus completed Titel Medical vaccine, 8 Group, inactivated [place]ID [place] zoster vaccine, completed Titel Result Medical inactivated<sup> 8 Comment: Group, 1</sup> [09/30/2017] OPID [place] First out of [place], two shots [place] influenza virus completed Titel Medical vaccine, 7 Group, inactivated [facility] [place],[facility] [place] Hx influenza Left completed GE Result Medical vaccine-unspecif 2 Deltoid Comment: Group, ied<sup>2</sup> fluzone. OPID [place] Migrated from [place], OBS ; Data [place] migrated from [facility] on 05/03/2015. Hx influenza Left completed GE Result Medical vaccine-unspecif 2 Deltoid Comment: Group ied<sup>1</sup> fluzone. Migrated from OBS ; Data migrated from [facility] on 05/03/2015. Results Order Name Results Value Reference Date Interpretation Comments Source Range HEMATOLOGY Platelet 310 133 - 450 2017 [place] CHEM PANEL eGFR 55 2017 Comment: [facility] eGFR is [place] calculated using the [...] PANEL Creatinine 1.26 0.50 - 1.40 Lvl 2017 [place] HEMATOLOGY INR 0.90 0.85 - 1.17 2017 [place] HEMATOLOGY PT 12.1 12.0 - 14.7 2017 [place] HEMATOLOGY PTT 26.9 22.9 - 35.8 09/17/ [address] Pathology Reports No Data Provided for This Section Diagnostic Reports Report Value Date Source Abdomen AP DX Abdomen AP DX 08/12/2018 [facility] CLINICAL INDICATION: - kidney stone COMPARISON: 02/11/2018 FINDINGS: Support Lines/Tubes: none Bowel gas pattern is unremarkable. No tract calculi are evident. Extensive degenerative changes are noted in the lumbar spine. IMPRESSION: No definite tract calculi nor other significant abnormality is noted. SL: [id number] Abdomen AP DX EXAM: AP radiographs of the abdomen and pelvis; 2 images obtained 02/11/2018 [facility] INDICATION: Renal stone COMPARISON: CT abdomen pelvis [...] study is not identified with radiography. SL: [id number] Pelvis biopsy needle PROCEDURE: 12/16/2017 [facility] guidance CT CT-guided prostate (pelvic mass) biopsy [...] WITH AND WITHOUT IV CONTRAST, 11/28/2017 [facility] [place] IV contrast CT HISTORY: Left lower abdominal [...] with and without contrast (DynaCad/UroNav) 11/26/2017 OP[facility] [place] MRI Reason for Exam: - MRI Prostate [...] 08/12/2018 Medical Group Heart Rate 80 08/12/2018 [facility] Temperature Oral (F) 98.2 F 08/12/2018 [facility] Weight 112.273 08/12/2018 [facility] BMI Calculated 37.63 08/12/2018 [facility] Systolic (mm Hg) 148 08/12/2018 [facility] Diastolic (mm Hg) 78 08/12/2018 [facility] Height 172.72 cm 07/08/2018 Medical [facility] Weight 113.295 07/08/2018 [facility] BMI Calculated 37.98 07/08/2018 [facility] Systolic (mm Hg) 126 07/08/2018 [facility] Diastolic (mm Hg) 67 07/08/2018 [...] Medical Group Systolic (mm Hg) 141 12/16/2017 [place] Diastolic (mm Hg) 62 12/16/2017 [place] Systolic (mm Hg) 114 12/16/2017 [place] Diastolic (mm Hg) 63 12/16/2017 [place] Systolic (mm Hg) 162 12/16/2017 [place] Diastolic (mm Hg) 80 12/16/2017 [place] BMI Calculated 35.95 12/16/2017 [place] Height 177.8 cm 12/16/2017 [place] Weight 113.636 12/16/2017 [place] Weight 114 12/10/2017 Medical Group BMI Calculated [...] Number For Provider Date Date Visit Outpatient [id number] 11/30 [facility] 0 Bert Outpatient [id number] 04/05 [facility] 1 Bert Outpatient [id number] 04/07 [facility] 2 [place] Outpatient [id number] 10/30 [facility] 3 [place] Outpatient [id number] 02/19 [facility] Bert Outpatient [id number] MOULTRIE 05/30 Active [facility] [place] Outpatient [id number] 06/18 [facility] [place] Outpatient [id number] 10/22 [facility] Bert Outpatient [id number] 12/25 [facility] Bert Outpatient [id number] 02/25 [facility] Outpatient [id number] Rich Sarah 02/25 02/26 Internal Medical Medicine Group [facility]ela [facility] Phone [phone] 06/05 06/07 Internal Message Medical Medicine Group [place] Outpatient [id number] 06/24 [facility] 1 [facility] Outpatient [id number] 06/24 Internal 1 [facility] [place] Outpatient [id number] 10/28 [facility] Outpatient [id number] 10/28 Internal 2 [facility] [place] Outpatient [id number] RICH SMITH 11/12 Active [facility] Outpatient [id number] Rich Smith 11/12 11/13 Urology Medical [place] [facility] Outpt Diag [id number] Richana lilia Smith 11/26 11/27 [facility] Outpatient Services [facility] [place] [facility] Outpt Diag [id number] Rich Sarah 11/28 11/29 [facility] Outpatient Services [facility] [place] Outpatient [id number] RICH SMITH 12/10 [facility] Outpatient [id number] Richana lilia Smith 12/10 12/11 Urology Medical [facility] Outpatient [id number] Rich Smith 12/16 12/17 [place] Outpatient [id number] RICH SMITH 12/18 [facility] Ambulatory [id number] Rich Smith 12/18 01/17 Urology Pre-Reg [facility] Outside [id number] 12/27 12/29 [facility]rology [facility] [place] [facility] [id number] 01/01 01/03 [facility]rology [facility] [place] [facility] [id number] 01/24 01/26 [facility]rology Medical [facility] [place] [facility] [id number] 02/10 02/12 Urology Message Medical [place] Group [facility] Outpatient [id number] XRAY VISIT 02/11 Active [facility] [place] Outpatient [id number] XRAY VISIT 02/11 Active [facility] [place] Outpatient [id number] RICH MORIN02/11 Active [facility] Bert [facility] Ambulatory [id number] NURSE VISIT 02/11 02/11 Radiology Pre-Reg Medical [place] [facility] Outpatient [id number] NURSE VISIT 02/11 02/12 Radiology Medical [place] [facility] Outpatient [id number] Rich [place] 02/11 02/12 Urology Medical [place] [facility] Outpatient [id number] 03/04 [facility] 3 Bert [facility] Outpatient [id number] Quentin 03/04 03/05 Internal 3 Medical Medicine Group [place] Outpatient [id number] 07/08 [facility] 1 Bert [facility] Outpatient [id number] 07/08 Internal 1 Medical Medicine Group [facility] Phone [id number] 07/30 08/01 Internal Message Medical Medicine Group [place] Outpatient [id number] Rich Sarah 08/12 [facility] [place] Outpatient [id number] NURSE VISIT 08/12 [facility] Bert Outpatient [id number] NURSE VISIT 08/12 [facility] Bert Outpatient [id number] NURSE VISIT 08/12 [facility] [place] Outpatient [id number] NURSE VISIT 08/12 [facility] Outpatient [id number] Rich [place] 08/12 08/13 Urology Medical [place] [facility] Ambulatory [id number] NURSE VISIT 08/12 08/12 Radiology Pre-Reg Medical [place] [facility] Ambulatory [id number] NURSE VISIT 08/12 08/12 Radiology Pre-Reg Medical [place] [facility] Ambulatory [id number] Rich Sarah 08/12 08/12 Radiology Pre-Reg Medical [place] [facility] Outpatient [id number] NURSE VISIT 08/12 08/13 Radiology Medical [place] [facility] Outpatient [id number] 11/11 [facility] 2 [place] [facility] Ambulatory [id number] Quentin 11/11 11/11 Internal Pre-Reg 2 [facility] /2018 Medical Medicine Group [place] Outpatient [id number] Rich Smith 08/17 Active [facility] [place] Procedures Procedure Code Date Perfomer Comments [place] [address] 02/11/2018 Medical post-voiding Group residual urine and/or bladder capacity by ultrasound, non-imaging Lithotripsy using [id number] 01/08/2018 Medical laser Group, [place] Prostate biopsy [id number] 12/16/2017 Medical sample Group, OPID [place] Partial amputation [id number] 11/03/2012 Medical of lesser toe Group, OPID [place], [place] Colectomy [id number] Medical Group, [facility] Hernia repair [id number] Medical Group, [place] Assessment and Plan No Data Provided for [...] age 47 yrs. Social History TypeResponse 11/27/2014 [place] Alcohol Never Smoking Status Never smoker; Type: Pt dips; Exposure to Tobacco Smoke None; Cigarette Smoking Last 365 Days No; Reg Smoking Cessation Counseling No1 entered on: 03/04/18 1Pt dips - 1 can will last 5-6 days - starting dipping about age 47 yrs. Social History TypeResponse 11/27/2014 OPID [place] Alcohol Never Smoking Status Never smoker; Type: [...]
--- OUTSIDE RECORDS SUMMARY | 2018-12-08 10:30 | XMS REPORT | Encounter Summary ---
:1940 Author Care Team Providers Name Role Phone Quentin Gunnar Gutierrez Primary Care Provider [phone] Markus Richter MD Primary Care Provider [phone] Reason for Visit Follow Up Visit Instructions 1. Benign essential hypertension high blood pressure: care instructions learning about high blood pressure 2. Degeneration of lumbar intervertebral disc Discussion Note: None recorded. Plan of Care Reminders Provider Appointments Return to on or around Markus Richter MD Office 05/09/2019 Follow up 05/11/2019 Markus Richter MD 8:30AM Lab None recorded. Referral None recorded. Procedures None recorded. Surgeries None recorded. Imaging None recorded. Medications Name Start Date Besivance 0.6 % eye drops,suspension Combigan 0.2 %-0.5 % eye drops INSTILL 1 DROP INTO AFFECTED EYE(S) BY OPHTHALMIC ROUTE EVERY 12 HOURS losartan 100 mg-hydrochlorothiazide 25 mg tablet Lumigan 0.01 % eye drops meloxicam 15 mg tablet Take 1 tablet every day by oral route. prednisolone acetate 1 % eye drops,suspension tramadol 50 mg tablet Take 1 tablet every day by oral route. Medications Administered None recorded. Vitals Height Weight BMI Blood Pressure 71 in 252 lbs 35.1 kg/m2 161/85 mm[Hg] Lab Results Date Name Specimen Result Interpretation Description Value Range Status Address 11/03/2018 BMP, Normal Glucose 103 82-115 [place] Serum or mg/dL mg/dL [facility] (Lab): [address] [place] [address] Normal Blood Urea 20 mg/dL 8-23 [place] Nitrogen mg/dL [facility] (Lab): [address] [place] [address] Normal Osmolality 282 280-300 [place] Calculated, [facility] (Lab): [address] [place] [address] Normal Creatinine 1.1 0.70-1.20 [place] mg/dL mg/dL [facility] (Lab): [address] [place] [address] Normal Glomerular >60.00 [place] Filtration [facility] (Lab): [address] [place] [address] Normal BUN/creatini 18.2 12-20 [place] ne Ratio [facility] (Lab): [address] [place] [address] Normal Sodium Level 140 135-145 [place] mmol/L mmol/L [facility] (Lab): [address] [place] [address] Normal Potassium 4.6 3.5-5.2 [place] Level mmol/L mmol/L [facility] (Lab): [address] [place] [address] Normal Chloride 104 98-108 [place] Level mmol/L mmol/L [facility] (Lab): [address] [place] [address] Normal Co2 26 21-32 [place] mmol/L mmol/L [facility] (Lab): [address] [place] [address] Normal Anion Gap 14.6 12-20 [place] mEq/L mEq/L [facility] (Lab): [address] [place] [address] Normal Calcium 10.0 8.8-10.2 [place] Level mg/dL mg/dL [facility] (Lab): [address] [place] [address] Allergies Code Code System Name Reaction Severity Status Onset 1191 RxNorm Aspirin Vomiting Moderate Active Sulfa Rash Moderate Active (Sulfonamide Antibiotics) Problems Name Status Onset Date Source Benign Essential Hypertension Active 08/07/2018 History of Ulcerative Colitis Active 08/07/2018 Degeneration of Lumbar Intervertebral Active 11/06/2018 Disc Giuliana's Disease Active Encounter Osteoarthritis of Knee Active Encounter Ankylosing Spondylitis Active Encounter Procedures Date Name Performed by 04/01/1966 Colectomy W/ileoanal Anast Information not available Hernia Repair W/mesh Information not available Tonsillectomy Information not available Appendectomy Information not available Knee Arthroscopy Dx Information not available Vaccine List None recorded. Social History Tobacco Smoking Status Never Smoker Past Encounters 11/06/2018 Benign Essential Hypertension; Degeneration of Lumbar Intervertebral Disc Markus Richter MD: [address] [place] [address], [address], [place] [address], Ph. History of Present Illness Note: CC htnb<div>hpi f/up a little high today but has been ok at home& lt;/div><div>ros</div><div>feeling fine</div><div& gt;cv above</div><div>resp neg</div><div>gi neg</div& gt;Review of Systems: ROS as noted in the HPI Review of Systems None recorded. Physical Exam Dr. Richter Brief Adult Exam - M/F Reported By: Patient Constitutional: General Appearance: well-developed, overweight. Level of Distress: NAD. Ambulation: ambulating normally Lungs: Auscultation: breath sounds normal, good air movement, CTA except as noted, no wheezing, no rales/crackles, no rhonchi Cardiovascular: Heart Auscultation: RRR, no rubs, no gallops Musculoskeletal: Edema absent
[2018-12-08] MEDS ORDERED: LIDOCAINE HCL/PF 3.5% OPTH GEL ONE (10:42)
[2018-12-08] MEDS ORDERED: TETRACAINE HCL 0.5% 4ML OPTH ONE (10:42)
[2018-12-08] MEDS ORDERED: LIDOCAINE 2% MPF 5 ML VIAL ONE (10:42)
[2018-12-08] MEDS ORDERED: BUPIVACAINE 0.25% PF 10 ML VIAL ONE (10:42)
[2018-12-08] MEDS ORDERED: NA CHLORIDE 0.9% 500 ML ONE (10:43)
[2018-12-08] MEDS: PHENYLEPHRINE 10% OPTH 5ML ONE ×3 (10:59→11:19)
[2018-12-08] MEDS: CYCLOPENTOLATE 1% OPTH 2 ML ONE ×3 (10:59→11:19)
[2018-12-08] MEDS ORDERED: MIDAZOLAM HCL 2 MG/2 ML INJ ONE (12:12)
[2018-12-08] MEDS ORDERED: FENTANYL CITR 100 MCG/2 ML ONE (12:12)
[2018-12-08] MEDS ORDERED: NS 0.9% VIAL 10 ML ONE (12:18)
[2018-12-08] MEDS: LIDOCAINE 1% MPF 2 ML AMPULE ONE ×2 (12:29→12:40)
[2018-12-08] MEDS: DUOVISC 1 KIT OPTH ONE ×2 (12:29→12:42)
[2018-12-08] MEDS: BALANCED SALT IRRIG PLAIN 500 ML BTL IRR ONE ×2 (12:29→12:40)
[2018-12-08] MEDS: MOXIFLOXACIN HCL 10 DROPS/ML **OR USE OPTH ONE ×3 (12:30→12:56)
[2018-12-08] MEDS ORDERED: EPINEPHRINE/PF 1 MG/ML AMP ONE (12:51)
--- NOTE | 2018-12-08 13:03 | P.BOP ---
Preoperative diagnosis: Nuclear sclerotic cataract OD Postoperative diagnosis: Same Primary procedure: Phacoemulsification with IOL OD Estimated blood loss: None Anesthesia: Local (Topical with anesthesia for cataract surgery) Complications: None Implants: [id number] +16.0 Transferred to: Other (Day surgery) Condition: Good
[2018-12-08 13:35] VITALS: BP 135/62; TEMP 97.7; O2SAT 99
--- NOTE | 2018-12-09 00:15 | OP ---
Surgeon: Gudelia Ronquillo MD Anesthesiologist: Walker Corrales CRNA, and Abdiel Harper M.D. Preoperative Diagnosis: Nuclear sclerotic cataract, right eye. Operation Performed: Phacoemulsification with intraocular lens implant, right eye. Anesthesia: Per cataract surgery. Complications: None. Description Of Procedure: In the operating room the patient was prepped and draped in the usual sterile fashion for ophthalmic surgery. A lid speculum was placed in the right eye. Two paracentesis sites were made superiorly and inferiorly in the limbal cornea. Viscoat was placed in the anterior chamber and a crescent blade was used to make a corneal groove and tunnel, and a keratome was used to enter the anterior chamber. Provisc was placed in the anterior chamber and a 360 degree capsulotomy was performed with a cystitome. The lens was hydrodissected with BSS and rotated freely. The lens was removed with a stop and chop technique. 19.12 phaco CDE was used to remove the lens. Residual cortex was removed with the irrigation and aspiration. Provisc was placed in the capsular bag. A [id number] +16.0 lens was placed in the capsular bag without complications. Irrigation and aspiration was used to remove residual viscoelastic. The paracentesis sites were hydrated with BSS. The wound and paracentesis sites were inspected and found to be watertight. Vigamox 0.07 cc was placed intracamerally at the end of the procedure. The eye was irrigated with balanced salt solution. The eye was patched with a soft cotton patch and Tovar metal shield. The patient was returned to day surgery in good condition. Comments: Akten was placed in the eye in day surgery and irrigated out of the eye with BSS in the OR. Preservative free 1% lidocaine was placed in the anterior chamber prior to Viscoat. Discharge Instructions: Mr. Cazares is discharged to home in good condition. He is to follow up with Dr. Ronquillo in the office this afternoon and in the morning. SUZANNE/PACHECO Voice ID: [id number] Report ID: [id number] OLMAN
== END 2018-12-08 13:30 | disposition home or self-care (01) ==
LOC: OR 10:23
PROVIDERS: ATTEND Ophthalmology Retina Specialist
PROC: 08RJ3JZ Replacement of Right Lens with Synthetic Substitute, Percutaneous Approach (ICD-10-PCS; principal; 2018-12-08 11:45)
DX: H25.11 Age-related nuclear cataract, right eye (principal); H40.10X0 Unspecified open-angle glaucoma, stage unspecified; H43.813 Vitreous degeneration, bilateral; I10 Essential (primary) hypertension; E78.00 Pure hypercholesterolemia, unspecified; M19.90 Unspecified osteoarthritis, unspecified site; Z79.82 Long term (current) use of aspirin; Z88.2 Allergy status to sulfonamides
CPT/HCPCS: 66984; J0171; J2250; J3010; J2001